=== PATIENT | female | born 1940 | race Caucasian/White ===

== ENCOUNTER 2021-02-18 09:00 | Inpatient (IN) | payer MEDICARE, BC, SELFPAY ==
[2021-02-18] VITALS (11 sets, daily range): BP systolic 115–165; BP diastolic 74–95; PULSE 57–72; RESP 16–20; TEMP 35.9–36.6; O2SAT 95–100; BMI 25.9
--- NOTE | ~2021-02-18 | CT_ITS ---
EXAMINATION: CT brain wo con INDICATION: Transient alteration of awareness COMPARISON: 05/11/2019 TECHNIQUE: Standard unenhanced head CT. The dose-length product (DLP) was 908.00 mGy-cm. The mA was a djusted according to patient size. Iterative reconstruction technique was employed. FINDINGS: Motion artifact limits the examination. There is no acute intraparenchymal hemorrhage. No e vidence of mass lesion. No evidence of acute infarction. There is mild periventricular and subcortica l hypodensity probably related to small vessel ischemic disease. There is mild prominence of the sulc i and ventricles related to cerebral atrophy. Intracranial calcified cerebral atherosclerosis is note d. There are no extra-axial collections. There is no mass effect or midline shift. The orbits and sof t tissues are unremarkable. The visualized sinuses and mastoid air cells are well aerated. IMPRESSION: 1. No acute intracranial abnormality. 2. Age related findings. Reviewed, dictated and finalized at location A.
--- NOTE | ~2021-02-18 | XR_ITS ---
EXAMINATION: XR chest 1V portable INDICATION: Altered mental status TECHNIQUE: Portable AP chest at 1027 hours COMPARISON: 05/11/2019 FINDINGS: The lung volumes are low. There is mild atelectasis of the left lung base. No pleural effus ion or pneumothorax is identified. The cardiomediastinal silhouette is normal. IMPRESSION: 1. No acute cardiopulmonary abnormality. Reviewed, dictated and finalized at location A.
--- NOTE | ~2021-02-18 | MR_ITS ---
EXAMINATION: MR brain/brain stem wo/w con DATE: 02/19/2021 16:35 INDICATION: Seizure. TECHNIQUE: Magnetic resonance imaging (MRI) of the brain and brainstem was performed without and with 14 mL MultiHance intravenous contrast. Sequences included sagittal and axial T1-weighted FSE, axial diffusion-weighted FS EPI, axial T2*-weighted GRE, axial T2-weighted FLAIR Propeller, and axial T2-we ighted Propeller. Postcontrast sequences included axial and coronal T1-weighted FSE. Apparent diffusi on coefficient (ADC) maps were created. COMPARISON: Head CT 02/18/2021 FINDINGS: There are scattered areas of nonspecific increased T2-weighted signal intensity in the cere bral white matter. There is no intracranial hemorrhage, acute infarction, or abnormal intracranial ma ss lesion. The ventricles are normal in size. The orbits are normal. The paranasal sinuses are clear. The mastoid air cells are normal. IMPRESSION: 1. Moderate nonspecific cerebral white matter disease, which likely represents chronic small vessel i schemic disease. Reviewed, dictated and finalized at location A. IMPRESSION: 1. Moderate nonspecific cerebral white matter disease, which likely represents chronic small vessel ischemic disease.
--- NOTE | ~2021-02-18 | CT_ITS ---
EXAMINATION: CT cervical spine wo con DATE: 02/18/2021 10:23 INDICATION: Head injury TECHNIQUE: Computed tomography (CT) of the cervical spine was performed without intravenous contrast. The dose-length product (DLP) was 188.46 mGy-cm. Automated exposure control and iterative reconstruc tion technique were employed. COMPARISON: None FINDINGS: There are 2 mm of retrolisthesis of C2 on C3 and 2 mm of anterolisthesis of C5 on C6. There is severe loss of intervertebral disc space height throughout the cervical spine. The vertebral body heights are maintained. The odontoid is intact. There is no fracture. Small degenerative osteophytes project from the anterior endplates of multiple vertebral bodies. 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 IMPRESSION: 1. Severe cervical spondylosis without acute findings. Reviewed, dictated and finalized at location A.
--- NOTE | 2021-02-18 09:09 | ECG_ITS ---
Measurements Intervals [place] Rate: 65 P: 53 WY: 129 QRS: 38 QRSD: 81 T: 44 QT: 425 QTc: 442 Interpretive Statements SINUS RHYTHM POSSIBLE LEFT ATRIAL ENLARGEMENT INCOMPLETE RIGHT BUNDLE BRANCH BLOCK BASELINE ARTIFACT- I, II, III, AVR, AVL, AVF, V1 BORDERLINE ECG Electronically Signed On 02-18-2021 11:07:24 CDT by Canelo Osuna D.O.
--- NOTE | 2021-02-18 10:18 | ED.GENADULT ---
HPI - General Adult General Chief complaint: Altered Mental Status Stated complaint: AMS Time Seen by Provider: 02/18/21 09:20 Source: family and EMS History of Present Illness HPI narrative: Patient is a 80 y/o female sent from residential for altered mental status. She reportedly had a fall yesterday and has some bruise on right forehead. She was found on the floor yesterday and the fall was not witnessed. She appeared fine and was able to get up. This morning, she had an episode of shaking and vomiting while she was at breakfast. She was thus sent here for evaluation. She has dementia and unable to provide any history. Related Data Home Medications Medication Instructions Recorded Confirmed mecobalamin (vitamin B12) 1,000 1,000 mcg SUBLINGUAL DAILY 05/26/19 02/18/21 mcg disintegrating tablet,sublingual acetaminophen 500 mg PO TID PRN 02/18/21 02/18/21 citalopram 5 mg DAILY 02/18/21 02/18/21 fludrocortisone 0.1 mg PO DAILY 02/18/21 02/18/21 Allergies Allergy/AdvReac Type Severity Reaction Status Date / Time No Known Allergies Allergy Unknown Unverified 05/11/19 17:15 Review of Systems Review of Systems: ROS unobtainable: Yes unobtainable due to mental status PMFSH Past Medical History Medical History (Updated 02/18/21 @ 15:24 by Nayeli Hanks MD) B12 deficiency Chronic kidney disease, stage 3 Diastolic dysfunction noted on echocardiogram 12/2016: Grade 1 diastolic dysfunction increased left heart filling pressures, EF 65% mild pulmonary valve regurgitation Fall Hypokalemia Hypomagnesemia Hypothyroidism Impaired glucose tolerance Iron deficiency Macular degeneration Obstructive lung disease mild on PFTs 05/2006 Paroxysmal atrial flutter (~04/2019) Squamous cell cancer of tongue (~2008) Surgical History Surgical History (Updated 02/18/21 @ 12:46 by Kasey Vallejo DO) History of colonoscopy with polypectomy (~2008) History of cystoscopy with bladder polypectomy History of dilation and curettage (~03/2019) Family History Family History Father Oral cancer Sibling Colorectal cancer sister Social History Social History (Updated 02/18/21 @ 12:48 by Kasey Vallejo DO) Social History: She lives at [facility]. She is a lifelong nonsmoker. She used to drink alcohol on occasion and only in moderation but has not drank alcohol in many years. 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 She has never been and does not have any children. Surrogate decision maker: Jo (niece) Code status: Full code (The patient's niece is uncertain if she would want the patient to be intubated or have CPR but wants to give further thought prior to changing the patient's code status.) Smoking status: Never smoker Alcohol intake: never Substance use: never Substance use type: does not use Gender identity (if verbalized by the patient): Female Sexual Orientation (if Verbalized by the Patient): Straight or Heterosexual Spiritual care concerns: Yes (Oriental Orthodox) Exam Const: General: no acute distress and well developed Orientation/consciousness: confusion HENMT: Head: normocephalic and hematoma (bruise right forehead) Ears: external ears normal General nose exam: Normal external nose present Eyes: General: appearance normal, both eyes and all related structures Conjunctivae: conjunctivae normal Neck: Neck: normal visual inspection and full ROM Chest: Chest palpation & inspection: normal inspection of the chest and no tenderness Resp: Effort & Inspection: normal respiratory effort Auscultation: clear to auscultation bilaterally Cardio: Rate: regular rate Rhythm: regular rhythm GI: GI Palp: No abdominal tenderness and Yes Soft to palpation Skin: General skin exam: normal color and turgor normal Neuro: General: confusion Extrem: General: normal to inspection, full ROM
[2021-02-18 10:25] LABS: Basophils Percent Auto 0.3 % (0.2-1.2); Eosinophils Percent Auto 0.1 % (0-4.4); Hematocrit 48.1 % (37.0-47.0); Hemoglobin 15.4 g/dL (12.0-15.0); Immature Granulocyte Absolute 0.02 K/mm3 (0.00-0.031); Immature Granulocyte Percent A 0.3 % (0-0.5); Immature Platelet Fraction Pct 17.1 % (0.9-11.2); Lymphocytes Absolute Auto 0.86 K/mm3 (0.9-3.2); Lymphocytes Percent Auto 12.5 % (18.3-44.2); Mean Corpuscular Hemoglobin 31.2 pg (26-34); Mean Corpuscular Volume 97.6 fl (80-100); Mean Platelet Volume 12.8 fl (7.4-10.4); Monocytes Absolute Auto 0.3 K/mm3 (0.1-0.6); Monocytes Percent Auto 4.8 % (2.6-8.5); Neutrophils Absolute Auto 5.6 K/mm3 (1.3-6.7); Platelet Count Result 143 k/mm3 (150-375); Red Blood Count 4.93 M/mm3 (4.2-5.4); Red Cell Distribution Width 14.2 % (11.5-14.5); White Blood Count 6.9 K/mm3 (4.5-10.0)
[2021-02-18 10:31] LABS: Alanine Aminotransferase 21 U/L (4-35); Albumin Level 4.1 g/dL (3.5-5.1); Alkaline Phosphatase 69 U/L (38-126); Anion Gap 9 mmol/L (8-16); Aspartate Amino Transferase 27 U/L (14-36); Bilirubin,Total 0.8 mg/dL (0.2-1.3); Blood Urea Nitrogen 15 mg/dL (7-17); Calcium 9.2 mg/dL (8.4-10.2); Carbon Dioxide 28 mmol/L (22-30); Chloride 104 mmol/L (98-107); Estimated Glomerular Filt Rate 53; Glucose 158 mg/dL (65-110); Sodium 141 mmol/L (137-145)
[2021-02-18 11:25] LABS: Add Urine Microscopic? YES; Appearance Urine Cloudy (Clear); Bilirubin Urine Negative (Negative); Blood Urine 3+ (Negative); Color Urine Yellow (Yellow); Glucose Urine UA Negative (Negative); Ketones Urine Trace mg/dL (Negative); Leukocyte Esterase Ur Negative LEU/UL (Negative); Mucus Urine Moderate /lpf; Nitrate Urine Negative (Negative); Protein Urine 1+ mg/dL (Negative); RBC Urine >75 /hpf (0-2); Specific Grav Ur 1.027 (1.001-1.035); Squamous Epithelial Cell Urine Moderate /hpf (Few)
--- NOTE | 2021-02-18 12:35 | PM.IMHP ---
H&P: HPI History of Present Illness Date/Time: 02/18/21 12:35 Chief Complaint: Sent from care home for possible seizure Narrative: 80-year-old female with past medical history of dementia, orthostatic hypotension and B12 deficiency who presented to the ER from [facility] due to possible seizure-like activity. Around noon the patient began having generalized shaking and her lips reportedly turned blue. She had had a fall the day prior that was unwitnessed with no acute complaints afterwards. She had a CT of the brain and cervical spine in the ER that was unremarkable.The patient's niece is at bedside and reports that the care home called her and told her that the patient was sitting at the table eating rate to eat breakfast. The patient suddenly became ashen and had some discoloration around her mouth. She slumped over sideways for a few seconds. The patient then had an episode of coughing followed by emesis. After which time the patient woke up and was back to her baseline. The patient was incontinent of urine at the time of the episode. The patient does not usually have difficulty with bowel or bladder control per the niece's report. The knees reports that the patient has been progressively more fatigued over the last several months. She reports the patient routinely falls asleep when in the middle of conversations. The patient will follow simple commands at the time of my evaluation. She is moving all extremities equally. She does have a bruise to her right knee but this does not seem to be all that tender. The patient does moan and groan when staff is providing any cares. She is alert oriented to person and seems to be aware that she is in the hospital. Review of Systems Review of Systems: ROS unobtainable: Yes unobtainable due to mental status [facility] Past Medical History Medical History (Updated 02/18/21 @ 15:24 by Nayeli Hanks MD) B12 deficiency Chronic kidney disease, stage 3 Diastolic dysfunction noted on echocardiogram 12/2016: Grade 1 diastolic dysfunction increased left heart filling pressures, EF 65% mild pulmonary valve regurgitation Fall Hypokalemia Hypomagnesemia Hypothyroidism Impaired glucose tolerance Iron deficiency Macular degeneration Obstructive lung disease mild on PFTs 05/2006 Paroxysmal atrial flutter (~04/2019) Squamous cell cancer of tongue (~2008) Surgical History Surgical History (Updated 02/18/21 @ 12:46 by Kasey Vallejo DO) History of colonoscopy with polypectomy (~2008) History of cystoscopy with bladder polypectomy History of dilation and curettage (~03/2019) Family History Family History Father Oral cancer Sibling Colorectal cancer sister Social History Social History (Updated 02/18/21 @ 15:27 by Kasey Vallejo DO) Social History: She lives at [facility]. She is a lifelong nonsmoker. She used to drink alcohol on occasion and only in moderation but has not drank alcohol in many years. 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 She has never been and does not have any children. Surrogate decision maker: Jo (niece) Code status: Full code (The patient's niece is uncertain if she would want the patient to be intubated or have CPR but wants to give further thought prior to changing the patient's code status.) Smoking status: Never smoker Alcohol intake: never Substance use: never Substance use type: does not use Gender identity (if verbalized by the patient): Female Sexual Orientation (if Verbalized by the Patient): Straight or Heterosexual Spiritual care concerns: Yes (Confucianism) Meds Home Medications and Allergies Home Medications Medication Instructions Recorded Confirmed Type mecobalamin (vitamin B12) 1,000 1,000 mcg SUBLINGUAL DAILY 05/26/19 02/18/21 History mcg disintegrating tablet,sublingual don
[2021-02-18] MEDS: levETIRAcetam 500MG/NACL 100ML 500 MG/100 ML BAG 400 MG IVPB ×2 (12:44→22:00)
[2021-02-18] MEDS: SODIUM CHLORIDE 0.9% IV 1,000 ML 999 ML IV CONT (13:00)
[2021-02-18 13:35] LABS: Lactic Acid Reflex 2.3 mmol/L (0.7-2.1)
[2021-02-18] MEDS: SODIUM CHLORIDE 0.9% IV 1,000 ML 100 ML IV CONT (14:28)
--- NOTE | 2021-02-18 14:36 | ADMGEN ---
This patient, Rakel Jeronimo, was admitted to Medical Room 341-01. Patient/family oriented to hospital policies and general routines including ID bracelet, bed and alarms, visiting hours, pain management, procedures, bathroom and other care routines, personal items, smoking policy, room service/diet, and visiting hours. Information on how to activate the Rapid Response Team has been discussed. Patient/Family are encouraged to report perceived risks to care and to ask questions if they do not understand what they are told or what they should do. Patinet in bed resting comfortably at this time with no complaints. Family at bedside.
[2021-02-18 16:15] LABS: Reflex Lactic Acid Yes or No Add Lactic
[2021-02-18] MEDS: CITALOPRAM HYDROBROMIDE 5 MG TABLET PO (19:49)
[2021-02-18] MEDS: DONEPEZIL HCL 10 MG TABLET PO (22:01)
[2021-02-19] VITALS (9 sets, daily range): BP systolic 134–149; BP diastolic 74–88; PULSE 54–71; RESP 16–18; TEMP 35.6–36.1; O2SAT 94–99
[2021-02-19] MEDS: SODIUM CHLORIDE 0.9% IV 1,000 ML 100 ML IV CONT ×3 (01:24→23:43)
[2021-02-19 06:28] LABS: Anion Gap 5 mmol/L (8-16); Blood Urea Nitrogen 13 mg/dL (7-17); Calcium 8.5 mg/dL (8.4-10.2); Carbon Dioxide 27 mmol/L (22-30); Chloride 110 mmol/L (98-107); Estimated CRCL calculation 44 ml/min; Estimated Glomerular Filt Rate > 60; Glucose 83 mg/dL (65-110); Hematocrit 43.9 % (37.0-47.0); Hemoglobin 13.9 g/dL (12.0-15.0); Mean Corpuscular HGB Conc 31.7 g/dl (32-36); Mean Platelet Volume 12.8 fl (7.4-10.4); Platelet Count Result 137 k/mm3 (150-375); Red Blood Count 4.48 M/mm3 (4.2-5.4); Red Cell Distribution Width 14.4 % (11.5-14.5); Sodium 142 mmol/L (137-145)
[2021-02-19] MEDS: levETIRAcetam 500MG/NACL 100ML 500 MG/100 ML BAG 200 MG IVPB (09:01)
[2021-02-19] MEDS: CYANOCOBALAMIN 1,000 MCG TABLET 1000 MCG PO (09:02)
[2021-02-19] MEDS: POTASSIUM CHLORIDE 20 MEQ TABLET.ER PO (09:02)
[2021-02-19] MEDS: FLUDROCORTISONE ACETATE 0.1 MG TABLET PO (09:02)
[2021-02-19] MEDS: ASPIRIN 81 MG CHEWABLE TABLET PO (09:02)
--- NOTE | 2021-02-19 10:25 | WPDNEUROLOGY ---
Neurology EEG Report General Information Date of Study: 02/19/21 TEST eeg DIAGNOSIS Seizures CONDITION OF RECORDING patient slept throughout the tracing.No history available. EEG NUMBER [id number] CLINICAL HISTORY seizures EEG DESCRIPTION whole record consists of low-voltage 15 to 18 hertz per 2nd beta and bilateral symmetrical sleep activity with symmetrical sleep spindles. Non paroxysmal ,nonfocal, nonlateralizing. IMPRESSION no significant abnormalities noted throughout the tracing during drowsiness and sleep.
--- NOTE | 2021-02-19 15:17 | PCSTNOTE ---
Please refer to the Bedside Swallow Evaluation in the EMR. Please note, silent aspiration cannot be ruled out at bedside.
[2021-02-19] MEDS: CITALOPRAM HYDROBROMIDE 5 MG TABLET PO (17:30)
--- NOTE | 2021-02-19 17:59 | PM.IMPN ---
Progress Note: A&P Assessment and Plan (1) Witnessed seizure-like activity: Code(s): R56.9 - Unspecified convulsions Status: Acute Assessment and Plan: seizure-like activity could be due to seizure with recent head trauma verses vasovagal event given patient had an episode of emesis associated with the event. The patient also had witnessed episode of coughing just prior to emesis and seizure-like activity. Given the patient's history of multiple oral surgeries due to tongue cancer will ask speech therapy to evaluate the patient's swallow function. 02/19/21 17:59 patient is 80-year-old female a resident [facility] with history of dementia, orthostatic hypotension, vitamin B12 deficient was sent to emergency depart with seizure-like activity observed at this [facility], emergency depart patient was started on Keppra, CT scan of the head is negative for any acute injury similarly MRI of the brain is negative for any acute activity, to further evaluate patient had a EEG which is essentially normal does not suggest any seizure activity, unfortunately patient is quite somnolent unable to provide detail review of symptoms, patient had speech evaluation there was no difficulty with swallowing, will have PT OT evaluate the patient and further recommendation to follow. (2) Vascular dementia: Code(s): F01.50 - Vascular dementia without behavioral disturbance Status: Acute Assessment and Plan: Continue home Aricept. Subjective Date/time seen: 02/19/21 17:59 patient is 80-year-old female a resident [facility] with history of dementia, orthostatic hypotension, vitamin B12 deficient was sent to emergency depart with seizure-like activity observed at this care center, emergency depart patient was started on Keppra, CT scan of the head is negative for any acute injury similarly MRI of the brain is negative for any acute activity, to further evaluate patient had a EEG which is essentially normal does not suggest any seizure activity, unfortunately patient is quite somnolent unable to provide detail review of symptoms, patient had speech evaluation there was no difficulty with swallowing, will have PT OT evaluate the patient and further recommendation to follow. Review of Systems Review of Systems: ROS unobtainable: Yes unobtainable due to medical condition Exam Narrative: elderly frail Patient is comfortable, NAD HEENT: eyes are clear and none icteric LUNGS: normal respiratory effort ABD: not distended Lower extremities: no edema SKIN: nonjaundiced Neuro: somnolent. Objective Data Vital Signs Vital Signs: Vital Signs - 24 hr 02/18/21 20:00 02/18/21 21:13 02/19/21 00:00 Temperature 98 F 97 F L Pulse Rate 63 59 L Respiratory Rate 16 16 Blood Pressure 115/88 134/88 Pulse Oximetry 95 95 98 02/19/21 04:00 02/19/21 06:08 02/19/21 08:00 Temperature 97 F L Pulse Rate 54 L 63 59 L Respiratory Rate 17 Blood Pressure 143/78 H Pulse Oximetry 99 02/19/21 12:00 02/19/21 15:27 02/19/21 16:43 Temperature 96.1 F L Pulse Rate 62 59 L 65 Respiratory Rate 18 Blood Pressure 144/78 H Pulse Oximetry 96 Intake/Output Intake/Output: Intake & Output 02/16/21 02/17/21 02/18/21 02/19/21 23:59 23:59 23:59 23:59 Intake Total 320 2390 Output Total 500 Balance 320 1890 Meds/Results Medications: Active Medications Generic Name Dose Route Start Last Admin Trade Name Freq PRN Reason Stop Dose Admin Acetaminophen 500 mg 02/18/21 15:29 Acetaminophen 500 Mg Tablet PO TID PRN Pain 1-3 or fever Aspirin 81 mg 02/19/21 09:00 02/19/21 09:02 Aspirin 81 Mg Chewable Tablet PO 81 mg DAILY NASRA Administration Citalopram Hydrobromide 5 mg 02/18/21 18:00 02/19/21 17:30 Citalopram Hydrobromide 5 Mg Tablet PO 5 mg QPM NASRA Administration Cyanocobalamin 1,000 mcg 02/19/21 09:00 02/19/21 09:02
[2021-02-19] MEDS: DONEPEZIL HCL 10 MG TABLET PO (20:07)
[2021-02-19] MEDS: levETIRAcetam 500MG/NACL 100ML 500 MG/100 ML BAG 400 MG IVPB (20:10)
[2021-02-20] VITALS (7 sets, daily range): BP systolic 125–151; BP diastolic 60–82; PULSE 59–87; RESP 16–18; TEMP 36.1–36.8; O2SAT 92–99
[2021-02-20 06:04] LABS: Hematocrit 40.5 % (37.0-47.0); Hemoglobin 13.1 g/dL (12.0-15.0); Immature Platelet Fraction Pct 15.6 % (0.9-11.2); Mean Corpuscular HGB Conc 32.3 g/dl (32-36); Mean Corpuscular Hemoglobin 31.3 pg (26-34); Mean Corpuscular Volume 96.7 fl (80-100); Platelet Count Result 125 k/mm3 (150-375); Red Blood Count 4.19 M/mm3 (4.2-5.4); Red Cell Distribution Width 14.3 % (11.5-14.5); White Blood Count 5.8 K/mm3 (4.5-10.0)
[2021-02-20 06:13] LABS: Anion Gap 5 mmol/L (8-16); Blood Urea Nitrogen 11 mg/dL (7-17); Calcium 8.4 mg/dL (8.4-10.2); Carbon Dioxide 23 mmol/L (22-30); Chloride 111 mmol/L (98-107); Estimated CRCL calculation 50 ml/min; Estimated Glomerular Filt Rate > 60; Glucose 84 mg/dL (65-110); Magnesium 1.6 mg/dL (1.6-2.3); Potassium 3.8 mmol/L (3.4-5.0); Sodium 139 mmol/L (137-145)
[2021-02-20] MEDS: ASPIRIN 81 MG CHEWABLE TABLET PO (08:24)
[2021-02-20] MEDS: POTASSIUM CHLORIDE 20 MEQ TABLET.ER PO (08:24)
[2021-02-20] MEDS: FLUDROCORTISONE ACETATE 0.1 MG TABLET PO (08:24)
[2021-02-20] MEDS: CYANOCOBALAMIN 1,000 MCG TABLET 1000 MCG PO (08:24)
[2021-02-20] MEDS: levETIRAcetam 500MG/NACL 100ML 500 MG/100 ML BAG 400 MG IVPB (08:27)
--- NOTE | 2021-02-20 11:00 | PM.DS ---
DS: Admitting Diagnosis Admitting Diagnosis Chief Complaint: Sent from senior care for possible seizure DS: Discharge Diagnosis Discharge Diagnosis (1) Witnessed seizure-like activity: Code(s): R56.9 - Unspecified convulsions Status: Acute Assessment and Plan: seizure-like activity could be due to seizure with recent head trauma verses vasovagal event given patient had an episode of emesis associated with the event. The patient also had witnessed episode of coughing just prior to emesis and seizure-like activity. Given the patient's history of multiple oral surgeries due to tongue cancer will ask speech therapy to evaluate the patient's swallow function. 02/19/21 17:59 patient is 80-year-old female a resident [facility] with history of dementia, orthostatic hypotension, vitamin B12 deficient was sent to emergency depart with seizure-like activity observed at [facility], emergency depart patient was started on Keppra, CT scan of the head is negative for any acute injury similarly MRI of the brain is negative for any acute activity, to further evaluate patient had a EEG which is essentially normal does not suggest any seizure activity, unfortunately patient is quite somnolent unable to provide detail review of symptoms, patient had speech evaluation there was no difficulty with swallowing, will have PT OT evaluate the patient and further recommendation to follow. (2) Vascular dementia: Code(s): F01.50 - Vascular dementia without behavioral disturbance Status: Acute Assessment and Plan: Continue home Aricept. DS: Summary Hospital Course Reason for hospitalization: Chief Complaint: Sent from senior care for possible seizure Narrative: 80-year-old female with past medical history of dementia, orthostatic hypotension and B12 deficiency who presented to the ER from [facility] due to possible seizure-like activity. Around noon the patient began having generalized shaking and her lips reportedly turned blue. She had had a fall the day prior that was unwitnessed with no acute complaints afterwards. She had a CT of the brain and cervical spine in the ER that was unremarkable.The patient's niece is at bedside and reports that the senior care called her and told her that the patient was sitting at the table eating rate to eat breakfast. The patient suddenly became ashen and had some discoloration around her mouth. She slumped over sideways for a few seconds. The patient then had an episode of coughing followed by emesis. After which time the patient woke up and was back to her baseline. The patient was incontinent of urine at the time of the episode. The patient does not usually have difficulty with bowel or bladder control per the niece's report. The knees reports that the patient has been progressively more fatigued over the last several months. She reports the patient routinely falls asleep when in the middle of conversations. The patient will follow simple commands at the time of my evaluation. She is moving all extremities equally. She does have a bruise to her right knee but this does not seem to be all that tender. The patient does moan and groan when staff is providing any cares. She is alert oriented to person and seems to be aware that she is in the hospital. Hospital Course: 02/19/21 17:59 patient is 80-year-old female a resident [facility] with history of dementia, orthostatic hypotension, vitamin B12 deficient was sent to emergency depart with seizure-like activity observed at this care center, emergency depart patient was started on Keppra, CT scan of the head is negative for any acute injury similarly MRI of the brain is negative for any acute activity, to further evaluate patient had a EEG which is essentially normal does not suggest any seizure activity, unfortunately patient is quite somnolent unable to provide detail review of symptoms,
[2021-02-20 13:40] LABS: Prolactin 8.1 ng/mL (***)
== END 2021-02-20 17:15 | DRG 101 ==
LOC: ANHED 10:14 → ANH3MED 12:47
PROVIDERS: Internal Medicine; Admitting Provider Internal Medicine; Emergency Provider Emergency Medicine; Visit Provider Family Medicine
DX: R56.9 Unspecified convulsions (principal); F01.50 Vascular dementia, unspecified severity, without behavioral disturbance, psychotic disturbance, mood disturbance, and anxiety; N18.30 Chronic kidney disease, stage 3 unspecified; I51.89 Other ill-defined heart diseases; S00.83XA Contusion of other part of head, initial encounter; W19.XXXA Unspecified fall, initial encounter; E53.8 Deficiency of other specified B group vitamins; I95.1 Orthostatic hypotension; Z85.810 Personal history of malignant neoplasm of tongue; Z79.899 Other long term (current) drug therapy
CPT/HCPCS: 36415; 51701; 70450; 70553; 71045; 72125; 80048; 80053; 81001; 83605; 83735; 84146; 85025; 85027; 85055; 87086; 92610; 93005; 95816; 96361; 96365; 96376; 97161; 97165; 99285; A9270; A9577; G0378; J1953; J7030

== ENCOUNTER 2021-06-16 08:26 | Emergency (ER) | payer MEDICARE, BC, SELFPAY ==
--- NOTE | ~2021-06-16 | XR_ITS ---
EXAMINATION: XR wrist LT min 3V DATE: 06/16/2021 08:48 INDICATION: Left wrist pain after fall, initial encounter TECHNIQUE: Posteroanterior, ulnar deviation, oblique, and lateral views of the left wrist were obtain ed. COMPARISON: None available FINDINGS: There is an acute, traumatic, closed, nondisplaced fracture of the distal radius. One fract ure plane appears to extend to the distal articular surface of the radius. Soft tissue swelling surro unds the fracture. No definite additional acute osseous abnormality is identified, sensitivity limite d by osteopenia. There is mild osteoarthritis at the first carpometacarpal joint. IMPRESSION: 1. Acute nondisplaced fracture of the distal radius. Reviewed, dictated and finalized at location A. A RELATIONS COORDINATOR
[2021-06-16 08:33] VITALS: BP 164/78; PULSE 68; RESP 18; TEMP 36.3; O2SAT 98
--- NOTE | 2021-06-16 09:02 | ED.FALL ---
HPI - Fall General Chief Complaint: Fall Stated Complaint: FALL/ L WRIST PAIN Time Seen by Provider: 06/16/21 08:46 Source: patient, EMS and RN notes reviewed Mode of arrival: EMS Limitations: altered mental status History of Present Illness HPI Narrative: Patient had a witnessed fall this morning, no head or neck injury, complaining of left wrist pain only when you touch it otherwise patient is asymptomatic Related Data Home Medications Medication Instructions Recorded Confirmed mecobalamin (vitamin B12) 1,000 1,000 mcg SUBLINGUAL DAILY 05/26/19 02/18/21 mcg disintegrating tablet,sublingual acetaminophen 500 mg PO TID PRN 02/18/21 02/18/21 citalopram 5 mg DAILY 02/18/21 02/18/21 fludrocortisone 0.1 mg PO DAILY 02/18/21 02/18/21 Allergies Allergy/AdvReac Type Severity Reaction Status Date / Time No Known Allergies Allergy Unknown Verified 06/16/21 08:36 Review of Systems Review of Systems: ROS unobtainable: Yes unobtainable due to mental status PMFSH Past Medical History Medical History B12 deficiency Chronic kidney disease, stage 3 Diastolic dysfunction noted on echocardiogram 12/2016: Grade 1 diastolic dysfunction increased left heart filling pressures, EF 65% mild pulmonary valve regurgitation Fall Hypokalemia Hypomagnesemia Hypothyroidism Impaired glucose tolerance Iron deficiency Macular degeneration Obstructive lung disease mild on PFTs 05/2006 Paroxysmal atrial flutter (~04/2019) Squamous cell cancer of tongue (~2008) Surgical History Surgical History History of colonoscopy with polypectomy (~2008) History of cystoscopy with bladder polypectomy History of dilation and curettage (~03/2019) Family History Family History Father Oral cancer Sibling Colorectal cancer sister Social History Social History Social History: She lives at [facility]. She is a lifelong nonsmoker. She used to drink alcohol on occasion and only in moderation but has not drank alcohol in many years. 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 She has never been and does not have any children. Surrogate decision maker: Jo (niece) Code status: Full code (The patient's niece is uncertain if she would want the patient to be intubated or have CPR but wants to give further thought prior to changing the patient's code status.) Smoking status: Never smoker Alcohol intake: never Substance use: never Substance use type: does not use Gender identity (if verbalized by the patient): Female Sexual Orientation (if Verbalized by the Patient): Straight or Heterosexual Spiritual care concerns: Yes (Mosque) Exam Narrative: General appearance: Well-developed, well-nourished Skin: Normal color Head: Normocephalic, nontraumatic Eyes: Clear conjunctiva ENT: Oropharynx normal, ears normal, nose normal Neck: Supple, nontender Chest and respiratory: Airway patent, no respiratory distress, no accessory muscle use Heart: Regular rate/rhythm Abdomen: Soft, nontender, no organomegaly, quiet bowel sounds Vascular: Normal peripheral pulses, normal capillary refill. Musculoskeletal: Slight diffuse tenderness left wrist, no bruises, no deformity, slight limited range of motion Neurologic: Alert and oriented to her name only Course Course Emergency Course: Stable Vital Signs Vital signs: Vital Signs Temperature 36.3 C L 06/16/21 08:33 Pulse Rate 68 06/16/21 08:33 Respirat
--- NOTE | 2021-06-16 10:18 | PC.NURSE ---
[facility] accepted return to [facility] 10:45 trip # [id number]
--- NOTE | 2021-06-16 10:37 | PC.NURSE ---
Steven Gonzalez Called to give nurse to nurse report, Barb received report without any questions or concerns.
--- NOTE | 2021-06-16 11:45 | PC.NURSE ---
[facility] cancelled per rn daughter willing to take pt back to [place]
[2021-06-16 12:02] VITALS: BP 158/80; PULSE 70; RESP 18; O2SAT 100
== END 2021-06-16 12:09 ==
LOC: ANHED 09:36
PROVIDERS: Emergency Provider Emergency Medicine
DX: S52.592A Other fractures of lower end of left radius, initial encounter for closed fracture (principal); E53.8 Deficiency of other specified B group vitamins; N18.30 Chronic kidney disease, stage 3 unspecified; I50.30 Unspecified diastolic (congestive) heart failure; E03.9 Hypothyroidism, unspecified; H35.30 Unspecified macular degeneration; J44.9 Chronic obstructive pulmonary disease, unspecified; I48.92 Unspecified atrial flutter; Z85.810 Personal history of malignant neoplasm of tongue; W19.XXXA Unspecified fall, initial encounter
CPT/HCPCS: 29125; 73110; 99284

== ENCOUNTER 2021-06-30 09:25 | Inpatient (IN) | payer MEDICARE, BC, SELFPAY ==
[2021-06-30] VITALS (29 sets, daily range): BP systolic 124–153; BP diastolic 60–90; PULSE 70–98; RESP 17–24; TEMP 36.2–36.4; O2SAT 90–100; BMI 21.6
--- NOTE | ~2021-06-30 | XR_ITS ---
EXAMINATION: XR hip BI 2V w AP pelvis DATE: 06/30/2021 10:54 INDICATION: Pelvic bruising TECHNIQUE: AP view the pelvis and two views of each hip were obtained. COMPARISON: 05/10/2008 FINDINGS: Bone alignment is normal. There is no fracture. There is mild osteoarthritis of the hips. P hleboliths are noted in the pelvis. There is severe lower lumbar spondylosis. IMPRESSION: 1. No acute osseous abnormality. Reviewed, dictated and finalized at location A. CRINOLOGY SPECIALIST
--- NOTE | ~2021-06-30 | CT_ITS ---
EXAMINATION: CT brain wo con INDICATION: Confusion COMPARISON: 02/18/2021 TECHNIQUE: Standard unenhanced head CT. The dose-length product (DLP) was 605.33 mGy-cm. The mA was a djusted according to patient size. Iterative reconstruction technique was employed. FINDINGS: There is no acute intraparenchymal hemorrhage. No evidence of mass lesion. No evidence of a cute infarction. There is mild periventricular and subcortical hypodensity probably related to small vessel ischemic disease. There is mild prominence of the sulci and ventricles related to cerebral atr ophy. Intracranial calcified cerebral atherosclerosis is noted. There are no extra-axial collections. There is no mass effect or midline shift. The orbits and soft tissues are unremarkable. The visualiz ed sinuses and mastoid air cells are well aerated. IMPRESSION: 1. No acute intracranial abnormality. 2. Age related findings. Reviewed, dictated and finalized at location A. RAFT MECHANIC ARMAMENT
--- NOTE | ~2021-06-30 | XR_ITS ---
EXAMINATION: XR knee LT 3V DATE: 06/30/2021 10:54 INDICATION: Left knee pain TECHNIQUE: Three views of the left knee were obtained. COMPARISON: 03/26/2013 FINDINGS: Alignment is normal. No fracture or osteochondral lesion. There is tricompartmental osteoar thritis of the knee, moderate in the medial and patellofemoral compartments. Chondrocalcinosis is not ed. There is no joint effusion. There is mild medial soft tissue swelling of the knee. IMPRESSION: 1. Osteoarthritis without acute osseous abnormality. Reviewed, dictated and finalized at location A. STANT MAINTENANCE MANAGER
--- NOTE | ~2021-06-30 | US_ITS ---
EXAMINATION: US biopsy lymph node DATE: 07/04/2021 12:21 INDICATION: Left internal jugular chain lymphadenopathy. TECHNIQUE: The procedure including the risks, benefits, and alternatives was discussed with Jo de león. Risks discussed included bleeding and infection. She understood the risks and agreed to meme mccall. The skin overlying the left neck was prepped and draped in usual sterile fashion. Anesthetic was administered with 1% lidocaine subcutaneously. An 18 gauge core biopsy needle was then used to obtai n 3 core biopsy specimens under continuous sonographic guidance. The entry site was cleaned and dress ed. There were no immediate complications. FINDINGS: Ultrasound images demonstrate the needle in an enlarged left internal jugular lymph node. IMPRESSION: 1. Ultrasound-guided core needle biopsy a left internal jugular lymph node. Reviewed, dictated and finalized at location A. CTOR PHARMACEUTICAL
--- NOTE | ~2021-06-30 | XR_ITS ---
EXAMINATION: XR chest 1V portable INDICATION: Leukocytosis TECHNIQUE: Portable AP chest at 1332 hours COMPARISON: 02/18/2021 FINDINGS: The lungs are free of acute opacities. There is no pleural effusion or pneumothorax. The pa tient is rotated. The cardiomediastinal silhouette is normal. IMPRESSION: 1. No acute cardiopulmonary abnormality. Reviewed, dictated and finalized at location A. L SHARPENER
--- NOTE | ~2021-06-30 | CT_ITS ---
EXAMINATION: CT soft tissue neck wo con DATE: 07/01/2021 17:39 INDICATION: Tongue cancer. TECHNIQUE: Computed tomography (CT) of the neck was performed with 75 mL Omnipaque-350 intravenous co ntrast. Automated exposure control and iterative reconstruction technique were employed. The dose-abe gth product was 469.33 mGy-cm. COMPARISON: Cervical spine CT 02/18/2021 FINDINGS: There is mild scarring at the lung apices. There is mild emphysema. There are airspace opac ities in right lower lobe, consistent with pneumonia. Dependent airspace opacities in the other lobes are likely atelectasis. Calcified left hilar lymph nodes are consistent with old granulomatous disea se. The orbits are normal. There is a 1.8 x 1.0 cm left mid internal jugular chain lymph node with fo klaudia peripheral calcifications. There is mucosal thickening in the paranasal sinuses. There is severe cervical spondylosis. IMPRESSION: 1. Mildly enlarged left mid internal jugular chain lymph node, worsened from 02/18/2021, consistent wit h metastatic disease. 2. Airspace opacities in right lung lower lobe, consistent with pneumonia. Reviewed, dictated and finalized at location A. HEAD LINER INSTALLER IMPRESSION: 1. Mildly enlarged left mid internal jugular chain lymph node, worsened from 02/18/2021, consistent with metastatic disease. 2. Airspace opacities in right lung lower lobe, consistent with pneumonia.
--- NOTE | ~2021-06-30 | US_ITS ---
US abdomen limited INDICATION: Abnormal CT. PROCEDURE: Realtime right upper abdominal ultrasound. COMPARISON: No prior studies for comparison. FINDINGS: The pancreas is normal without focal mass or pancreatic ductal dilation. Liver echotexture is normal without focal mass or intrahepatic biliary dilatation. There is normal directional flow i n the portal vein. There are gallstones with gallbladder wall thickening measuring 8 mm. Common bile duct measures 5 mm . No sonographic Gotti's sign. IMPRESSION: 1: Cholelithiasis with gallbladder wall thickening. Findings suspicious for cholecystitis. Clinically correlate. Reviewed, dictated and finalized at location A. VISION TECHNICIAN IMPRESSION: 1: Cholelithiasis with gallbladder wall thickening. Findings suspicious for cho lecystitis. Clinically correlate.
--- NOTE | ~2021-06-30 | XR_ITS ---
EXAMINATION: XR knee RT 3V DATE: 06/30/2021 10:54 INDICATION: Right knee pain TECHNIQUE: Three views of the right knee were obtained. COMPARISON: 11/06/2009 FINDINGS: Alignment is normal. No fracture or osteochondral lesion. There is chondrocalcinosis of the menisci. No joint effusion/synovitis. Mild lateral soft tissue swelling is present. IMPRESSION: 1. Mild osteoarthritis without acute osseous abnormality. Reviewed, dictated and finalized at location A. CLERK
--- NOTE | ~2021-06-30 | CT_ITS ---
EXAMINATION: CT abdomen pelvis w con DATE: 07/01/2021 17:39 INDICATION: Abdomen pain. Leukocytosis. TECHNIQUE: Computed tomography (CT) of the abdomen and pelvis was performed with 100 cc Omnipaque 350 intravenous contrast. The dose-length product was 881.16 mGy-cm. Automated exposure control and iter ative reconstruction technique were employed. COMPARISON: CT dated 11/05/2018. FINDINGS: Colonic diverticulosis without evidence for diverticulitis. There is right upper and lower lobe airspace disease which may represent atelectasis or pneumonia. Small pericardial effusion. No si gnificant pleural effusion. There is atherosclerosis of the aorta without evidence for aneurysm. Elevated right diaphragm. There is mild gallbladder wall thickening. The liver, spleen, pancreas, adrenal glands and kidneys are unre markable. There is colonic diverticulosis without evidence for diverticulitis. Nonobstructive bowel g as pattern. No free air or free fluid. There is an L1 superior endplate compression fracture which is age-indeterminate. Mild thoracic spondylosis the appendix is unremarkable. No evidence for appendici tis. IMPRESSION: 1. Patchy right-sided airspace disease which may represent atelectasis or pneumonia. 2: Small pericardial effusion. 3: Gallbladder wall thickening. No definite gallstones identified. Consider correlation with ultrasou nd if there is concern for cholecystitis. 4: Age-indeterminate L1 superior endplate compression fracture. Reviewed, dictated and finalized at location A. RNITY FLOOR SUPERVISOR IMPRESSION: 1. Patchy right-sided airspace disease which may represent atelectasis or pneum onia. 2: Small pericardial effusion. 3: Gallbladder wall thickening. No definite gallstones identified. Consider cor relation with ultrasound if there is concern for cholecystitis. 4: Age-indeterminate L1 superior endplate compression fracture.
--- NOTE | 2021-06-30 10:20 | ECG_ITS ---
Measurements Intervals [place] Rate: 76 P: 63 NE: 129 QRS: 34 QRSD: 90 T: -35 QT: 387 QTc: 436 Interpretive Statements SINUS RHYTHM INCOMPLETE RIGHT BUNDLE BRANCH BLOCK BORDERLINE ST-T WAVE ABNORMALITY- ANTEROLAT/INF LEADS BASELINE ARTIFACT- I, II, III, AVR, AVL, AVF, V1-V6 BORDERLINE ECG Electronically Signed On 06-30-2021 12:21:38 MILLINERY DESIGNER by Canelo Osuna D.O.
--- NOTE | 2021-06-30 10:22 | ED.GENADULT ---
HPI - General Adult General Chief complaint: Unspecified Stated complaint: refusing to eat or take medications Time Seen by Provider: 06/30/21 10:12 Source: EMS and RN notes reviewed Mode of arrival: EMS Limitations: altered mental status History of Present Illness HPI narrative: Patient brought in by EMS from [facility] with reports that she has not been taking her medications for the last three days. Her baseline status is oriented x 1-2. Patient has an underlying history of dementia, atrial flutter, seizures, CKD, squamous cell carcinoma of the tongue, diastolic dysfunction. On my initial exam, pt is oriented to person but confused about place and time. She does not answer any additional interview questions. She was seen here at the end of May. At that time she was evaluated for a fall. She had an acute fracture of the distal left radius. She did have a follow up appt thereafter. On my exam she has bruising to the left lateral pelvis and anterior aspect of both knees. Related Data Home Medications Medication Instructions Recorded Confirmed mecobalamin (vitamin B12) 1,000 1,000 mcg SUBLINGUAL DAILY 05/26/19 02/18/21 mcg disintegrating tablet,sublingual acetaminophen 500 mg PO TID PRN 02/18/21 02/18/21 citalopram 5 mg DAILY 02/18/21 02/18/21 fludrocortisone 0.1 mg PO DAILY 02/18/21 02/18/21 Allergies Allergy/AdvReac Type Severity Reaction Status Date / Time No Known Allergies Allergy Unknown Verified 06/19/21 10:14 Review of Systems Review of Systems: ROS unobtainable: Yes unobtainable due to mental status PMFSH Past Medical History Medical History B12 deficiency Chronic kidney disease, stage 3 Diastolic dysfunction noted on echocardiogram 12/2016: Grade 1 diastolic dysfunction increased left heart filling pressures, EF 65% mild pulmonary valve regurgitation Fall Hypokalemia Hypomagnesemia Hypothyroidism Impaired glucose tolerance Iron deficiency Macular degeneration Obstructive lung disease mild on PFTs 05/2006 Paroxysmal atrial flutter (~04/2019) Squamous cell cancer of tongue (~2008) Surgical History Surgical History History of colonoscopy with polypectomy (~2008) History of cystoscopy with bladder polypectomy History of dilation and curettage (~03/2019) Family History Family History Father Oral cancer Sibling Colorectal cancer sister Social History Social History Social History: She lives at [facility]. She is a lifelong nonsmoker. She used to drink alcohol on occasion and only in moderation but has not drank alcohol in many years. 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 She has never been and does not have any children. Surrogate decision maker: Jo (niece) Code status: Full code (The patient's niece is uncertain if she would want the patient to be intubated or have CPR but wants to give further thought prior to changing the patient's code status.) Smoking status: Never smoker Alcohol intake: never Substance use: never Substance use type: does not use Gender identity (if verbalized by the patient): Female Sexual Orientation (if Verbalized by the Patient): Straight or Heterosexual Spiritual care concerns: Yes (Adventism) Exam Narrative: GENERAL: Well-appearing, well-nourished, and in no acute distress. Generalized pallor HEAD: Normocephalic, atraumatic. EYES: PERRLA and EOMI. Mucous consistent white discharge noted to left eye ENT: Nares clear, no rhinorrhea or epistaxis. Mucous membranes moist. Oropharynx without tonsillar hypertrophy exudate or other lesions. Bilateral TMs pearly almanzar nonbulging NECK: Supple. No adenopathy or masses.
[2021-06-30 11:17] LABS: Basophils Absolute Auto 0.1 K/mm3 (0.0-0.1); Basophils Percent Auto 0.4 % (0.2-1.2); Eosinophils Absolute Auto 0.5 K/mm3 (0-0.3); Eosinophils Percent Auto 4.2 % (0-4.4); Hematocrit 46.9 % (37.0-47.0); Hemoglobin 15.8 g/dL (12.0-15.0); Immature Granulocyte Absolute 0.07 K/mm3 (0.00-0.031); Immature Granulocyte Percent A 0.6 % (0-0.5); Lymphocytes Absolute Auto 0.72 K/mm3 (0.9-3.2); Lymphocytes Percent Auto 5.7 % (18.3-44.2); Mean Corpuscular HGB Conc 33.7 g/dl (32-36); Mean Corpuscular Hemoglobin 32.8 pg (26-34); Mean Corpuscular Volume 97.5 fl (80-100); Monocytes Absolute Auto 1.1 K/mm3 (0.1-0.6); Monocytes Percent Auto 8.4 % (2.6-8.5); Neutrophils Absolute Auto 10.2 K/mm3 (1.3-6.7); Neutrophils Percent Auto 80.7 % (45.5-73.1); Platelet Count Result 143 k/mm3 (150-375); Red Blood Count 4.81 M/mm3 (4.2-5.4); Red Cell Distribution Width 13.6 % (11.5-14.5); White Blood Count 12.6 K/mm3 (4.5-10.0)
[2021-06-30 11:33] LABS: Alanine Aminotransferase 13 U/L (4-35); Albumin Level 4.3 g/dL (3.5-5.1); Alkaline Phosphatase 77 U/L (38-126); Anion Gap 12 mmol/L (8-16); Aspartate Amino Transferase 25 U/L (14-36); Bilirubin,Total 2.5 mg/dL (0.2-1.3); Blood Urea Nitrogen 13 mg/dL (7-17); Calcium 9.3 mg/dL (8.4-10.2); Carbon Dioxide 28 mmol/L (22-30); Chloride 100 mmol/L (98-107); Estimated Glomerular Filt Rate 47; Glucose 136 mg/dL (65-110); Potassium 3.1 mmol/L (3.4-5.0); Sodium 140 mmol/L (137-145)
[2021-06-30 11:45] LABS: Troponin I 0.013 ng/mL (0.000-0.034)
[2021-06-30 12:24] LABS: Magnesium 1.6 mg/dL (1.6-2.3)
[2021-06-30 12:42] LABS: Add Urine Microscopic? YES; Appearance Urine Cloudy (Clear); Bilirubin Urine 1+ (Negative); Blood Urine 1+ (Negative); Color Urine Amber (Yellow); Glucose Urine UA 1+ mg/dL (Negative); Ketones Urine 1+ mg/dL (Negative); Leukocyte Esterase Ur Negative LEU/UL (Negative); Mucus Urine Heavy /lpf; Nitrate Urine Negative (Negative); Protein Urine 2+ mg/dL (Negative); Squamous Epithelial Cell Urine Many /hpf (Few); WBC Urine 21-30 /hpf
[2021-06-30] MEDS: POTASSIUM CHLORIDE 20 MEQ PACKET (FOR LIQUID) 40 MEQ PO (13:23)
--- NOTE | 2021-06-30 15:12 | PM.IMHP ---
H&P: HPI History of Present Illness Date/Time: 06/30/21 15:12 Chief Complaint: Generalized weakness/Failure to thrive Narrative: 80-year-old female with past medical history of paroxysmal Aflutter, hypothyroidism, dementia (baseline orientation x 1-2), orthostatic hypotension, B12 deficiency, diastolic dysfunction, who presented to the ER from [facility] due to failure to thrive. Per EMS report the patient had not been taking her medications the last 3 days, increased generalized weakness, refusing to eat or drink and per her niece she is at her baseline mental status and acting her normal self. The patient has been having increased drainage to her left eye and has been using warm wash cloths to help with the matting. Niece says she does not have good vision and believes she does not eat and drink much because she states everything looks dirty from her cataracts. She is suppose to have an eye appointment Thursday for her cataracts. Niece is also concerned she has reoccurance of her tongue cancer causing her to not eat and drink much. Initial vitals showed stable vitals with blood pressure 134/76, heart rate 98 beats per minute, afebrile, 97% on room air. Initial labs showed leukocytosis at 12,600, with elevated neutrophils at 80%, hemoconcentration with a hemoglobin of 15.8, hematocrit 46.9. Thrombocytopenia at 143,000. Hypokalemia at 3.1, magnesium low at 1.6 which will be replaced, mildly elevated creatinine at 1.1, when baseline is 0.8. 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 Initial troponin normal. Urinalysis is not suspicious for UTI with many squamous cells, wbc's 31-50, 2+ protein, 1+ blood, 1+ bilirubin, 4+ urobilinogen, RBC 6-10. Chest x-ray shows no acute cardiopulmonary abnormality. Further imaging completed due to bruising on her hip and knees which showed osteoarthritis without acute osseous abnormality. CT head showed no acute intracranial abnormality, age-related findings. EKG showed normal sinus rhythm, rate of 76 beats per minute, incomplete right bundle branch, otherwise no acute ST T-wave changes. She will be admitted into the hospital under observation status, with IV fluid hydration, replenish electrolytes, will continue IV Rocephin until urine culture results returned with further monitoring of her mental status. Code Status- Do not resuscitate POA- Naidachidi Jo Patterson Review of Systems Review of Systems: All systems reviewed & are unremarkable except as noted in HPI and below [facility] Past Medical History Medical History (Updated 06/30/21 @ 15:39 by Karley Vergara PA-C) B12 deficiency Chronic kidney disease, stage 3 Diastolic dysfunction noted on echocardiogram 12/2016: Grade 1 diastolic dysfunction increased left heart filling pressures, EF 65% mild pulmonary valve regurgitation Fall Hx of tongue cancer Hypokalemia Hypomagnesemia Hypothyroidism Impaired glucose tolerance Iron deficiency Macular degeneration Obstructive lung disease mild on PFTs 05/2006 Paroxysmal atrial flutter (~04/2019) Squamous cell cancer of tongue (~2008) Surgical History Surgical History History of colonoscopy with polypectomy (~2008) History of cystoscopy with bladder polypectomy History of dilation and curettage (~03/2019) Family History Family History Father Oral cancer Sibling Colorectal cancer sister Social History Social History Social History: She lives at [facility]. She is a lifelong nonsmoker. She used to drink alcohol on occasion and only in moderation but has not drank alcohol in many years. 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 She has never been and does not have any children. Surrogate decision maker: Jo (niece) Co
[2021-06-30 16:52] LABS: Troponin I < 0.012 ng/mL (0.000-0.034)
--- NOTE | 2021-06-30 16:52 | ADMGEN ---
This patient, Rakel Jeronimo, was admitted to 2 Medical Room 261-01. Patient/family oriented to hospital policies and general routines including ID bracelet, bed and alarms, visiting hours, pain management, procedures, bathroom and other care routines, personal items, smoking policy, room service/diet, and visiting hours. Information on how to activate the Rapid Response Team has been discussed. Patient/Family are encouraged to report perceived risks to care and to ask questions if they do not understand what they are told or what they should do.
[2021-06-30] MEDS: MAGNESIUM SULFATE 3GM/D5W100ML 3 GM/100 ML BAG IVPB (18:50)
[2021-06-30] MEDS: SODIUM CHLORIDE 0.9% IV 1,000 ML 75 ML IV CONT (18:51)
--- NOTE | 2021-06-30 19:12 | PC.NURSE ---
Spoke with Leann MACDONALD re: n=missed dose of 0900 dose of Keppra in ER. Leann instructed to give 500 mg IV dose now and resume BID dosing tomorrow. Also, notified of pt refusal of Lovenox & will order SCDs for patient for VTE prophylaxis.
[2021-06-30] MEDS: levETIRAcetam 500MG/NACL 100ML 500 MG/100 ML BAG 400 MG IVPB (19:38)
--- NOTE | 2021-06-30 19:55 | PC.NURSE ---
patient came up to floor around 1700. after finishing admission, I realized that she had keppra that was ordered and backtimed to be given at 0900. family member of patient said she had not taken any medications that morning. patient was not given IV keppra in Emergency department. Charge Nurse, Dana called Yesseniaiary to figure out what to do. was told to give one dose tonight and start BID keppra in the morning.
[2021-07-01] VITALS (9 sets, daily range): BP systolic 135–156; BP diastolic 60–80; PULSE 68–78; RESP 16–20; TEMP 36.3–36.7; O2SAT 94–96; BMI 21.6
[2021-07-01 06:16] LABS: Basophils Percent Auto 0.2 % (0.2-1.2); Eosinophils Percent Auto 0.3 % (0-4.4); Hematocrit 39.7 % (37.0-47.0); Hemoglobin 13.1 g/dL (12.0-15.0); Immature Granulocyte Absolute 0.04 K/mm3 (0.00-0.031); Immature Granulocyte Percent A 0.5 % (0-0.5); Lymphocytes Absolute Auto 1.29 K/mm3 (0.9-3.2); Mean Corpuscular Hemoglobin 32.4 pg (26-34); Mean Corpuscular Volume 98.3 fl (80-100); Mean Platelet Volume 13.6 fl (7.4-10.4); Monocytes Absolute Auto 0.6 K/mm3 (0.1-0.6); Monocytes Percent Auto 7.5 % (2.6-8.5); Neutrophils Absolute Auto 6.6 K/mm3 (1.3-6.7); Neutrophils Percent Auto 76.5 % (45.5-73.1); Platelet Count Result 133 k/mm3 (150-375); Red Blood Count 4.04 M/mm3 (4.2-5.4); Red Cell Distribution Width 13.7 % (11.5-14.5); White Blood Count 8.6 K/mm3 (4.5-10.0)
[2021-07-01 06:33] LABS: Alanine Aminotransferase 9 U/L (4-35); Albumin Level 3.2 g/dL (3.5-5.1); Alkaline Phosphatase 61 U/L (38-126); Anion Gap 6 mmol/L (8-16); Aspartate Amino Transferase 22 U/L (14-36); Bilirubin,Total 1.2 mg/dL (0.2-1.3); Blood Urea Nitrogen 17 mg/dL (7-17); Calcium 8.4 mg/dL (8.4-10.2); Carbon Dioxide 28 mmol/L (22-30); Chloride 103 mmol/L (98-107); Estimated CRCL calculation 49 ml/min; Estimated Glomerular Filt Rate > 60; Glucose 86 mg/dL (65-110); Magnesium 2.5 mg/dL (1.6-2.3); Potassium 2.8 mmol/L (3.4-5.0); Sodium 137 mmol/L (137-145)
[2021-07-01 07:06] LABS: Thyroid Stimulating Hormone Reflex 0.754 uIU/mL (0.465-4.68)
[2021-07-01 07:11] LABS: Vitamin B12 > 1000.0 pg/mL (239-931)
[2021-07-01] MEDS: LACTATED RINGERS 1,000 ML 60 ML IV CONT ×2 (08:34→18:16)
[2021-07-01] MEDS: KCL 20 MEQ/SW 100 ML 100 ML 50 MEQ IVPB ×2 (08:40→09:10)
[2021-07-01] MEDS: POTASSIUM CHLORIDE 20 MEQ TABLET 40 MEQ PO (09:09)
[2021-07-01] MEDS: FLUDROCORTISONE ACETATE 0.1 MG TABLET PO (09:09)
[2021-07-01] MEDS: CYANOCOBALAMIN 1,000 MCG TABLET 1000 MCG PO (09:09)
[2021-07-01] MEDS: ASPIRIN 81 MG CHEWABLE TABLET BY MOUTH (09:09)
[2021-07-01] MEDS: PANTOPRAZOLE SODIUM IV 40 MG VIAL IV PUSH ×2 (09:09→20:46)
[2021-07-01] MEDS: levETIRAcetam 500MG/NACL 100ML 500 MG/100 ML BAG 400 MG IVPB (13:30)
--- NOTE | 2021-07-01 14:12 | PC.NURSE ---
This patient, Rakel Jeronimo, was transferred to [CT ] on 07/01/21 at 1412.
--- NOTE | 2021-07-01 14:16 | PC.NURSE ---
Pt was screaming and hitting me as I attempted to scan her wristband in order to hang the next IVPB. During this time, the speech therapist technician came to draw pt's blood for a potassium level and pt continued screaming, cursing, spitting, kicking and hitting the speech therapist technician. The [employer] appeared to assist control pt. Pt attempted to kick and hit the [employer] as well. After approximately 15 minutes of attempting to calm pt down to no avail, I contacted pt's Jo perry, the POA and asked if she could come up MARCIA. During all of this, transporters arrived to take pt to CT for a CT w/contrast but pt refused to go, refused to wear a mask, and began cursing, screaming, and hitting the transporters as well.
--- NOTE | 2021-07-01 14:22 | PM.IMPN ---
Progress Note: A&P Assessment and Plan (1) Failure to thrive: Status: Acute Assessment and Plan: Per family patient came in due to not eating and drinking. The family states she is at her baseline with mental status and her mood. She is more sleepy today, but the family states that is not uncommon for her to be sleeping most of the day. Could have a UTI verses progression of her dementia causing her to have failure to thrive Continue regular diet, with supplementation Will D/c IV fluids at this time. She appears euvolemic and labs are improved and she is eating/drinking/cooperating to take her medications. Continue physical and occupational therapy B12 normal, TSH normal. Pending folic acid, B12 See how she does over the next few days at the hospital Continue monitoring. 07/01/21: Per the nurse the patient has been refusing to go down for CT scan, lab draws, it took her 45 minutes to take her medications this morning, she has been eating some. The patient's niece is in the room who has talked to the patient and is in agreement to replace her IV to continue her IV antibiotics, and talked to her about her CT scans. The patient's niece states she can be with her to help these tests get done so we can figure out what is going on. Patient will most likely have to stay overnight to get her CT scans, continue monitoring her potassium level and monitoring her urine culture results. (2) Leukocytosis: Code(s): D72.829 - Elevated white blood cell count, unspecified Status: Acute Assessment and Plan: Leukocytosis with elevated neutrophils, chest x-ray normal, urinalysis slightly abnormal. Will also get a CT of her abdomen because she is reporting abdominal pain and there is no clear-cut reason for her leukocytosis 07/01/21: Leukocytosis normalized today. Will continue IV Rocephin until urine culture comes back. Continue monitoring. (3) Dehydration: Code(s): E86.0 - Dehydration Status: Acute Assessment and Plan: Discontinue IV fluids at this time, appears euvolemic and eating/drinking. Continue monitoring. (4) Acute hypokalemia: Code(s): E87.6 - Hypokalemia Status: Acute Assessment and Plan: Potassium low at 2.8 this morning. She was given Potassium supplementation this morning .Magnesium normal today after supplementation given. Pending 1400 recheck potassium Continue monitoring (5) Hx of tongue cancer: Code(s): Z85.810 - Personal history of malignant neoplasm of tongue Status: Acute Assessment and Plan: Her niece is concerned for recurrence of her tongue cancer. Patient is not cooperative to allow me to look inside of her mouth or to stick out her tongue. We will get a CT soft tissue of head and neck to see if there is any type of abnormality your growth to her tongue or mouth. (6) Seizure: Code(s): R56.9 - Unspecified convulsions Status: Acute Assessment and Plan: She took her medications this morning. Will continue her PO Keppra at this time. Seizure precautions in place (7) Paroxysmal atrial flutter: Onset Date: ~04/2019 Code(s): I48.92 - Unspecified atrial flutter Status: Acute Assessment and Plan: Currently in normal sinus rhythm. She is not on chronic anticoagulation given her age and fall risks. Tele shows NSR rate 71 bpm, two tachycardic episodes with rate 118 and 128 bpm, appears to be sinus tachycardia but cannot rule out atrial flutter given her history. Will D/c Tele at this time. Will keep her on DVT prophylaxis with Lovenox while in the hospital. Time
[2021-07-01 17:11] LABS: Potassium 4.6 mmol/L (3.4-5.0)
[2021-07-01] MEDS: CITALOPRAM HYDROBROMIDE 5 MG TABLET BY MOUTH (17:51)
[2021-07-01] MEDS: ENOXAPARIN 40 MG/0.4 ML SYRINGE SUB-Q (17:54)
[2021-07-01] MEDS: levETIRAcetam 500 MG TABLET PO (20:46)
[2021-07-01] MEDS: DONEPEZIL HCL 10 MG TABLET BY MOUTH (20:46)
[2021-07-02] VITALS (10 sets, daily range): BP systolic 132–157; BP diastolic 81–94; PULSE 55–83; RESP 16–20; TEMP 36.6–37.1; O2SAT 96–98
[2021-07-02] MEDS: LACTATED RINGERS 1,000 ML 60 ML IV CONT (03:00)
[2021-07-02] MEDS: CYANOCOBALAMIN 1,000 MCG TABLET 1000 MCG PO (09:19)
[2021-07-02] MEDS: ASPIRIN 81 MG CHEWABLE TABLET BY MOUTH (09:19)
[2021-07-02] MEDS: levETIRAcetam 500 MG TABLET PO ×2 (09:19→20:48)
[2021-07-02] MEDS: FLUDROCORTISONE ACETATE 0.1 MG TABLET PO (09:19)
[2021-07-02] MEDS: PANTOPRAZOLE SODIUM IV 40 MG VIAL IV PUSH ×2 (09:20→20:49)
--- NOTE | 2021-07-02 15:21 | PM.IMPN ---
Progress Note: A&P Assessment and Plan (1) Failure to thrive: Status: Acute Assessment and Plan: Per family patient came in due to not eating and drinking. The family states she is at her baseline with mental status and her mood. She is more sleepy today, but the family states that is not uncommon for her to be sleeping most of the day. Possible progression of her dementia causing her to have failure to thrive Continue regular diet, with supplementation Will D/c IV fluids at this time. She appears euvolemic and labs are improved and she is eating/drinking/cooperating to take her medications. Continue physical and occupational therapy B12 normal, TSH normal. Pending folic acid, B12 >1000 See how she does over the next few days at the hospital Did find pneumonia on CT so she was started on abx for this, could be contributing Also found enlarged lymph node on CT consistent w/ recurrence of metastatic disease, Dr. Massey was consulted. (2) Pneumonia: Code(s): J18.9 - Pneumonia, unspecified organism Status: Acute Assessment and Plan: -CT abd/pelv w/ RLL pneumonia, pt was started on IV azithromycin and rocephin -Leukocytosis resolved -97% on RA, no increased work of breathing, lungs CTA bilaterally -Cont IV abx (3) Dehydration: Code(s): E86.0 - Dehydration Status: Acute Assessment and Plan: Discontinue IV fluids at this time, appears euvolemic and eating/drinking. Continue monitoring. (4) Acute hypokalemia: Code(s): E87.6 - Hypokalemia Status: Acute Assessment and Plan: Potassium low at 2.8. She was given Potassium supplementation .Magnesium normal after supplementation given. Repeat Potassium WNL. (5) Hx of tongue cancer: Code(s): Z85.810 - Personal history of malignant neoplasm of tongue Status: Acute Assessment and Plan: -Her niece is concerned for recurrence of her tongue cancer. -CT soft tissue of head and neck shows enlarged L mid internal jugular lymph node consistent with metastatic disease -Dr. Massey consulted, appreciate his recommendations regarding further management -She previously saw an ENT specialist (but no oncologist) per niece who is providing history, this physician however was in [place] and they would like the transfer care to someone local (6) Seizure: Code(s): R56.9 - Unspecified convulsions Status: Acute Assessment and Plan: Continue home seizure meds. Will continue her PO Keppra at this time. Seizure precautions in place (7) Paroxysmal atrial flutter: Onset Date: ~04/2019 Code(s): I48.92 - Unspecified atrial flutter Status: Acute Assessment and Plan: Currently in normal sinus rhythm. She is not on chronic anticoagulation given her age and fall risks. Tele shows NSR rate 71 bpm, two tachycardic episodes with rate 118 and 128 bpm, appears to be sinus tachycardia but cannot rule out atrial flutter given her history. Will D/c Tele at this time. Will keep her on DVT prophylaxis with Lovenox while in the hospital. Subjective Date/time seen: 07/02/21 15:21 Interval history: Pt is alert to person only. She is calm and attempts to follow most commands. Niece is at bedside. Pt has no specific complaints but does seem to be tender in her epigastric area. Further hx limited secondary to mental status. Review of Systems Review of Systems: ROS unobtainable: Yes unobtainable due to mental status Exam Narrative: General: 81-year-old woman laying flat in bed, resting. Easily arousable. Appears comfortable. In no acute distress. HEENT: Atraumatic. Normocephalic. So
[2021-07-02] MEDS: ENOXAPARIN 40 MG/0.4 ML SYRINGE SUB-Q (17:07)
[2021-07-02] MEDS: CITALOPRAM HYDROBROMIDE 5 MG TABLET BY MOUTH (18:19)
[2021-07-02] MEDS: DONEPEZIL HCL 10 MG TABLET BY MOUTH (20:48)
[2021-07-03] VITALS (10 sets, daily range): BP systolic 130–158; BP diastolic 72–87; PULSE 52–80; RESP 16–20; TEMP 36.3–36.6; O2SAT 96–99
[2021-07-03 06:48] LABS: Basophils Percent Auto 0.3 % (0.2-1.2); Eosinophils Absolute Auto 0.1 K/mm3 (0-0.3); Eosinophils Percent Auto 1.6 % (0-4.4); Hematocrit 36.5 % (37.0-47.0); Hemoglobin 12.3 g/dL (12.0-15.0); Immature Granulocyte Absolute 0.06 K/mm3 (0.00-0.031); Immature Platelet Fraction Pct 18.1 % (0.9-11.2); Lymphocytes Absolute Auto 1.43 K/mm3 (0.9-3.2); Lymphocytes Percent Auto 22.8 % (18.3-44.2); Mean Corpuscular HGB Conc 33.7 g/dl (32-36); Mean Corpuscular Volume 97.9 fl (80-100); Mean Platelet Volume 13.2 fl (7.4-10.4); Monocytes Absolute Auto 0.6 K/mm3 (0.1-0.6); Monocytes Percent Auto 9.6 % (2.6-8.5); Neutrophils Absolute Auto 4.1 K/mm3 (1.3-6.7); Neutrophils Percent Auto 64.7 % (45.5-73.1); Platelet Count Result 131 k/mm3 (150-375); Red Blood Count 3.73 M/mm3 (4.2-5.4); Red Cell Distribution Width 13.2 % (11.5-14.5); White Blood Count 6.3 K/mm3 (4.5-10.0)
[2021-07-03 07:09] LABS: Alanine Aminotransferase 14 U/L (4-35); Albumin Level 2.8 g/dL (3.5-5.1); Alkaline Phosphatase 57 U/L (38-126); Anion Gap 8 mmol/L (8-16); Aspartate Amino Transferase 33 U/L (14-36); Bilirubin,Total 0.9 mg/dL (0.2-1.3); Blood Urea Nitrogen 11 mg/dL (7-17); Calcium 7.8 mg/dL (8.4-10.2); Carbon Dioxide 26 mmol/L (22-30); Chloride 103 mmol/L (98-107); Estimated CRCL calculation 49 ml/min; Estimated Glomerular Filt Rate > 60; Glucose 92 mg/dL (65-110); Potassium 3.2 mmol/L (3.4-5.0); Sodium 137 mmol/L (137-145)
[2021-07-03] MEDS: POTASSIUM CHLORIDE 20 MEQ TABLET 40 MEQ PO (09:08)
[2021-07-03] MEDS: metroNIDAZOLE 500 MG/ISO 100ML 500 MG/100 ML BAG 100 MG IVPB ×3 (09:08→23:49)
[2021-07-03] MEDS: ASPIRIN 81 MG CHEWABLE TABLET BY MOUTH (09:12)
[2021-07-03] MEDS: CYANOCOBALAMIN 1,000 MCG TABLET 1000 MCG PO (09:12)
[2021-07-03] MEDS: levETIRAcetam 500 MG TABLET PO ×2 (09:12→21:07)
[2021-07-03] MEDS: FLUDROCORTISONE ACETATE 0.1 MG TABLET PO (09:13)
[2021-07-03] MEDS: PANTOPRAZOLE SODIUM IV 40 MG VIAL IV PUSH ×2 (09:13→21:07)
--- NOTE | 2021-07-03 11:19 | PCOTNOTE ---
Attempted to see patient this am, however patient declined stating, Not right now. I'm too tired.
--- NOTE | 2021-07-03 13:00 | PDONCCN ---
HPI - Date of Consult Date/Time: 07/03/21 13:00 Requesting Physician: Alexa Cheung PA-C Primary Care Provider: INVESTIGATOR VICE PHYSICIAN - Consult Narrative Reason for consult: Relapsed head and neck cancer Narrative: Rakel Jeronimo is a 81 year old female who is a poor historian and would not cooperate with any history taking and examination. Patient has a history of squamous cell carcinoma of the tongue diagnosed in 2009 status post resection by Dr. Mendes. She had relapsed disease in January of 2016 and further resection was performed by Dr. Mendes and came back positive for squamous cell carcinoma. She has not received any radiation therapy and chemotherapy. This history was taken from patient knees be on the phone. She now came into the hospital with generalized weakness and failure to thrive. She has been eating poorly and drinking poorly and found to be dehydrated. She is also dealing with left eye infection. She had some diarrhea and urinary infection. She has been losing weight due to poor calorie intake. Review of Systems - Review of Systems All systems reviewed & are unremarkable except as noted in [facility] and [facility] Medical History: Medical History (Last Updated 06/30/21 @ 15:39 by Karley Vergara PA-C) B12 deficiency Chronic kidney disease, stage 3 Diastolic dysfunction noted on echocardiogram 12/2016: Grade 1 diastolic dysfunction increased left heart filling pressures, EF 65% mild pulmonary valve regurgitation Fall Hx of tongue cancer Hypokalemia Hypomagnesemia Hypothyroidism Impaired glucose tolerance Iron deficiency Macular degeneration Obstructive lung disease mild on PFTs 05/2006 Paroxysmal atrial flutter Onset Date: ~04/2019 Squamous cell cancer of tongue Onset Date: ~2008 Surgical History: Surgical History (Last Reviewed 06/30/21 @ 15:24 by Karley Vergara PA-C) History of colonoscopy with polypectomy Onset Date: ~2008 History of cystoscopy with bladder polypectomy History of dilation and curettage Onset Date: ~03/2019 Family History: Family History (Last Reviewed 06/30/21 @ 17:30 by Maia Abdi RN) Father Oral cancer Sibling Colorectal cancer sister - Social History Social History: Social History (Last Reviewed 06/30/21 @ 15:27 by Karley Vergara PA-C) Gender Identity: Gender identity (if verbalized by the patient): Female Sexual Orientation: Sexual Orientation (if Verbalized by the Patient): Straight or Heterosexual Alcohol Use: Alcohol intake: never Substance Use: Substance use: never Substance use type: does not use Others: Spiritual care concerns: No Smoking Status: Smoking status: Never smoker Second hand tobacco smoke exposure: No Meds Home Medications Medication Instructions Recorded Confirmed Type mecobalamin (vitamin B12) 1,000 1,000 mcg SUBLINGUAL DAILY 05/26/19 06/30/21 History mcg disintegrating tablet,sublingual donepezil 10 mg tablet See Rx Instructions .ROUTE 12/27/19 06/30/21 Rx .COMPLEX #90 tablet aspirin 81 mg chewable tablet See Rx Instructions .ROUTE 02/27/20 06/30/21 Rx .COMPLEX #90 tablet potassium chloride 20 mEq See Rx Instructions .ROUTE 02/27/20 06/30/21 Rx tablet,extended release(part/cryst) .COMPLEX #180 tablet acetaminophen 500 mg PO TID PRN 02/18/21 06/30/21 History citalopram 5 mg DAILY 02/18/21 06/30/21 History fludrocortisone 0.1 mg PO DAILY 02/18/21 06/30/21 History levetiracetam [Keppra] 500 mg PO BID #60 tablet 02/20/21 06/30/21 Rx Allergies Allergy/AdvReac Type Severity Reaction Status Date / Time No Known Allergies Allergy Unknown Verified 06/19/21 10:14 Results - Labs CBC & Chem 7: 07/03/21 06:26 07/03/21 06:26 Labs: Short CBC 07/03/21 Range/Units 06:26 WBC 6.3 (4.5-10.0) K/mm3 Hgb 12.3 (12.0-15.0) g/dL Hct 36.5 L (37.0-47.0) % Plt Count 131 L (150-375) k/mm3 BMP 07/03/21
--- NOTE | 2021-07-03 13:28 | PCOTNOTE ---
Attempted to see pt. again this afternoon, with pt. presenting sleeping with refusal to participate in any ADLs stating, I don't feel like it. Will attempt tomorrow, however pt. stated she would not feel up to it tomorrow either.
--- NOTE | 2021-07-03 16:07 | PM.IMPN ---
Progress Note: A&P Assessment and Plan (1) Failure to thrive: Status: Acute Assessment and Plan: Per family patient came in due to not eating and drinking. The family states she is at her baseline with mental status and her mood. She is more sleepy today, but the family states that is not uncommon for her to be sleeping most of the day. Possible progression of her dementia causing her to have failure to thrive Continue regular diet, with supplementation Will D/c IV fluids at this time. She appears euvolemic and labs are improved and she is eating/drinking/cooperating to take her medications. Continue physical and occupational therapy B12 normal, TSH normal. Pending folic acid, B12 >1000 Did find pneumonia on CT so she was started on abx for this, could be contributing Also found enlarged lymph node on CT consistent w/ recurrence of metastatic disease, Dr. Massey was consulted RUQ US w/ abnormal gallbladder wall thickening, attempted HIDA but patient would not cooperate. Added flagyl to cover and will monitor. See below. (2) Pneumonia: Code(s): J18.9 - Pneumonia, unspecified organism Status: Acute Assessment and Plan: -CT abd/pelv w/ RLL pneumonia, pt was started on IV azithromycin and rocephin -Leukocytosis resolved -97% on RA, no increased work of breathing, lungs CTA bilaterally -Cont IV abx (3) Dehydration: Code(s): E86.0 - Dehydration Status: Acute Assessment and Plan: Discontinue IV fluids at this time, appears euvolemic and eating/drinking. Continue monitoring. (4) Acute hypokalemia: Code(s): E87.6 - Hypokalemia Status: Acute Assessment and Plan: Potassium monitored and replaced. Today 3.2, will do 40 meq PO and recheck in AM. (5) Hx of tongue cancer: Code(s): Z85.810 - Personal history of malignant neoplasm of tongue Status: Acute Assessment and Plan: -Her niece is concerned for recurrence of her tongue cancer. -CT soft tissue of head and neck shows enlarged L mid internal jugular lymph node consistent with metastatic disease -She previously saw an ENT specialist (but no oncologist) per niece who is providing history, this physician however was in [place] and they would like the transfer care to someone local -Dr. Massey was consulted and evaluated patient today. He has ordered a biopsy and patient is going to follow up with him on outpatient basis. (6) Seizure: Code(s): R56.9 - Unspecified convulsions Status: Acute Assessment and Plan: Continue home seizure meds. Will continue her PO Keppra at this time. Seizure precautions in place (7) Paroxysmal atrial flutter: Onset Date: ~04/2019 Code(s): I48.92 - Unspecified atrial flutter Status: Acute Assessment and Plan: Currently in normal sinus rhythm. She is not on chronic anticoagulation given her age and fall risks. Tele shows NSR rate 71 bpm, two tachycardic episodes with rate 118 and 128 bpm, appears to be sinus tachycardia but cannot rule out atrial flutter given her history. Will D/c Tele at this time. Will keep her on DVT prophylaxis with Lovenox while in the hospital. (8) Thickening of wall of gallbladder: Code(s): K82.8 - Other specified diseases of gallbladder Status: Acute Assessment and Plan: -As seen on CT and RUQ US -Attempted HIDA but patient was uncooperative -Added flagyl to cover -No murphys sign but does have epigastric tenderness. -Has minimal leukocytosis, no fever or tachycardia. Will continue monitoring. Consider general surgery but lower suspicion for acute cholecystitis at this
[2021-07-03] MEDS: ENOXAPARIN 40 MG/0.4 ML SYRINGE SUB-Q (17:28)
[2021-07-03] MEDS: CITALOPRAM HYDROBROMIDE 5 MG TABLET BY MOUTH (17:28)
[2021-07-03] MEDS: DONEPEZIL HCL 10 MG TABLET BY MOUTH (21:07)
[2021-07-04] VITALS (9 sets, daily range): BP systolic 131–173; BP diastolic 77–83; PULSE 56–95; RESP 12–18; TEMP 36.1–36.6; O2SAT 95–97
[2021-07-04 07:40] LABS: Alanine Aminotransferase 15 U/L (4-35); Albumin Level 3.2 g/dL (3.5-5.1); Alkaline Phosphatase 64 U/L (38-126); Anion Gap 9 mmol/L (8-16); Aspartate Amino Transferase 31 U/L (14-36); Blood Urea Nitrogen 5 mg/dL (7-17); Calcium 7.9 mg/dL (8.4-10.2); Carbon Dioxide 28 mmol/L (22-30); Chloride 99 mmol/L (98-107); Estimated CRCL calculation 57 ml/min; Estimated Glomerular Filt Rate > 60; Glucose 87 mg/dL (65-110); Lipase 49 U/L (23-300); Potassium 2.8 mmol/L (3.4-5.0); Sodium 136 mmol/L (137-145)
[2021-07-04 07:42] LABS: Basophils Percent Auto 0.4 % (0.2-1.2); Eosinophils Absolute Auto 0.1 K/mm3 (0-0.3); Eosinophils Percent Auto 1.7 % (0-4.4); Hematocrit 39.5 % (37.0-47.0); Hemoglobin 13.5 g/dL (12.0-15.0); Immature Granulocyte Percent A 1.3 % (0-0.5); Immature Platelet Fraction Pct 17.5 % (0.9-11.2); Lymphocytes Absolute Auto 1.28 K/mm3 (0.9-3.2); Lymphocytes Percent Auto 17.2 % (18.3-44.2); Mean Corpuscular HGB Conc 34.2 g/dl (32-36); Mean Corpuscular Volume 93.6 fl (80-100); Mean Platelet Volume 13.2 fl (7.4-10.4); Monocytes Absolute Auto 0.8 K/mm3 (0.1-0.6); Monocytes Percent Auto 10.9 % (2.6-8.5); Neutrophils Absolute Auto 5.1 K/mm3 (1.3-6.7); Neutrophils Percent Auto 68.5 % (45.5-73.1); Platelet Count Result 148 k/mm3 (150-375); Red Blood Count 4.22 M/mm3 (4.2-5.4); White Blood Count 7.5 K/mm3 (4.5-10.0)
[2021-07-04] MEDS: metroNIDAZOLE 500 MG/ISO 100ML 500 MG/100 ML BAG 100 MG IVPB ×2 (09:06→16:25)
[2021-07-04] MEDS: KCL 20 MEQ/SW 100 ML 100 ML 50 MEQ IVPB ×2 (09:06→13:15)
[2021-07-04] MEDS: levETIRAcetam 500 MG TABLET PO ×2 (09:07→19:38)
[2021-07-04] MEDS: CYANOCOBALAMIN 1,000 MCG TABLET 1000 MCG PO (09:07)
[2021-07-04] MEDS: PANTOPRAZOLE SODIUM IV 40 MG VIAL IV PUSH ×2 (09:07→19:38)
[2021-07-04] MEDS: ASPIRIN 81 MG CHEWABLE TABLET BY MOUTH (09:07)
[2021-07-04] MEDS: ACETAMINOPHEN 325 MG TABLET 650 MG PO (09:24)
--- NOTE | 2021-07-04 10:50 | PCNFU ---
Nutrition Follow-Up Complete: Inadequate Oral Intake as related to dementia as evidenced by poor po intake reported Goal: Meet estimated nutritional needs Patient has limited progress towards goal. We will continue current goal. Pt current nutrition is Regular with Ensure compact BID. Last recorded weight is 60.7 kg, no new weight to report. Bowel Motility:+BM reported 07/01 Labs Reviewed: K 2.8,Na 136, Alb 3.2 Meds Noted:Keppra, Protonix, B12 Skin: WNL Additional Notes: Patient remains on a regular diet with Ensure compact. Spoke with TORRES Dill today regarding poor po intake. Plans to start IV fluids today. Noted enlarged lymph node on CT consistent w/ recurrence of metastatic disease. Oncology consult. Monitoring: Will monitor every 3 days.
--- NOTE | 2021-07-04 11:50 | PCOTNOTE ---
Attempted to see Patient for OT A.M. treatment session. Patient refused, stated, i'm sleeping, just leave me alone, I dont even want my lunch, I want to sleep .
--- NOTE | 2021-07-04 12:05 | PC.NURSE ---
pt to radiology via stretcher
[2021-07-04] MEDS: LACTATED RINGERS 1,000 ML 100 ML IV CONT (13:14)
--- NOTE | 2021-07-04 14:25 | PM.IMPN ---
Progress Note: A&P Assessment and Plan (1) Failure to thrive: Status: Acute Assessment and Plan: Per family patient came in due to not eating and drinking. The family states she is at her baseline with mental status and her mood. She is more sleepy today, but the family states that is not uncommon for her to be sleeping most of the day. Possible progression of her dementia causing her to have failure to thrive Attempted regular diet, with supplementation, however patient has only been eating 0-15% of her meals so she was placed back on IVF. Continue attempting physical and occupational therapy B12 normal, TSH normal. Pending folic acid, B12 >1000 Did find pneumonia on CT so she was started on abx for this, could be contributing Also found enlarged lymph node on CT consistent w/ recurrence of metastatic disease, Dr. Massey was consulted RUQ US w/ abnormal gallbladder wall thickening, attempted HIDA but patient would not cooperate. Added flagyl to cover and will monitor. See below. (2) Pneumonia: Code(s): J18.9 - Pneumonia, unspecified organism Status: Acute Assessment and Plan: -CT abd/pelv w/ RLL pneumonia, pt was started on IV azithromycin and rocephin -Leukocytosis resolved -97% on RA, no increased work of breathing, lungs CTA bilaterally -Cont IV abx (3) Dehydration: Code(s): E86.0 - Dehydration Status: Acute Assessment and Plan: IV fluids (4) Acute hypokalemia: Code(s): E87.6 - Hypokalemia Status: Acute Assessment and Plan: Potassium monitored and replaced. Today 2.8, likely due to decreased PO intake. Replaced with 40 meq IV. Recheck BMP this afternoon. (5) Hx of tongue cancer: Code(s): Z85.810 - Personal history of malignant neoplasm of tongue Status: Acute Assessment and Plan: -Her niece is concerned for recurrence of her tongue cancer. -CT soft tissue of head and neck shows enlarged L mid internal jugular lymph node consistent with metastatic disease -She previously saw an ENT specialist (but no oncologist) per niece who is providing history, this physician however was in [place] and they would like the transfer care to someone local -Dr. Massey was consulted and evaluated patient today. He has ordered a biopsy to be completed today and patient is going to follow up with him on outpatient basis. (6) Seizure: Code(s): R56.9 - Unspecified convulsions Status: Acute Assessment and Plan: Continue home seizure meds. Will continue her PO Keppra at this time. Seizure precautions in place (7) Paroxysmal atrial flutter: Onset Date: ~04/2019 Code(s): I48.92 - Unspecified atrial flutter Status: Acute Assessment and Plan: Currently in normal sinus rhythm. She is not on chronic anticoagulation given her age and fall risks. Tele shows NSR rate 71 bpm, two tachycardic episodes with rate 118 and 128 bpm, appears to be sinus tachycardia but cannot rule out atrial flutter given her history. Will D/c Tele at this time. Will keep her on DVT prophylaxis with Lovenox while in the hospital. (8) Thickening of wall of gallbladder: Code(s): K82.8 - Other specified diseases of gallbladder Status: Acute Assessment and Plan: -As seen on CT and RUQ US -Attempted HIDA but patient was uncooperative -Added flagyl to cover -No murphys sign but does have epigastric tenderness. -Has minimal leukocytosis, no fever or tachycardia. Will continue monitoring. Consider general surgery but lower suspicion for acute cholecystitis at this time Subjective Date/time seen: 07/04/21 14:
[2021-07-04 14:54] LABS: Anion Gap 4 mmol/L (8-16); Blood Urea Nitrogen 7 mg/dL (7-17); Calcium 8.1 mg/dL (8.4-10.2); Carbon Dioxide 28 mmol/L (22-30); Chloride 101 mmol/L (98-107); Estimated CRCL calculation 49 ml/min; Estimated Glomerular Filt Rate > 60; Glucose 125 mg/dL (65-110); Potassium 3.6 mmol/L (3.4-5.0); Sodium 133 mmol/L (137-145)
[2021-07-04] MEDS: ENOXAPARIN 40 MG/0.4 ML SYRINGE SUB-Q (17:37)
[2021-07-04] MEDS: FLUDROCORTISONE ACETATE 0.1 MG TABLET PO (17:38)
[2021-07-04] MEDS: CITALOPRAM HYDROBROMIDE 5 MG TABLET BY MOUTH (17:38)
[2021-07-04] MEDS: DONEPEZIL HCL 10 MG TABLET BY MOUTH (19:38)
[2021-07-05] VITALS (10 sets, daily range): BP systolic 151–197; BP diastolic 67–98; PULSE 60–74; RESP 16–18; TEMP 36.1–36.8; O2SAT 90–95
[2021-07-05] MEDS: metroNIDAZOLE 500 MG/ISO 100ML 500 MG/100 ML BAG 100 MG IVPB ×4 (00:35→23:40)
[2021-07-05] MEDS: LACTATED RINGERS 1,000 ML 100 ML IV CONT ×2 (00:35→15:50)
[2021-07-05 05:26] LABS: Basophils Percent Auto 0.6 % (0.2-1.2); Eosinophils Absolute Auto 0.2 K/mm3 (0-0.3); Eosinophils Percent Auto 2.5 % (0-4.4); Hematocrit 37.9 % (37.0-47.0); Hemoglobin 12.7 g/dL (12.0-15.0); Immature Granulocyte Absolute 0.13 K/mm3 (0.00-0.031); Immature Granulocyte Percent A 2.1 % (0-0.5); Lymphocytes Absolute Auto 1.07 K/mm3 (0.9-3.2); Lymphocytes Percent Auto 16.9 % (18.3-44.2); Mean Corpuscular HGB Conc 33.5 g/dl (32-36); Mean Corpuscular Hemoglobin 32.2 pg (26-34); Mean Corpuscular Volume 95.9 fl (80-100); Mean Platelet Volume 12.5 fl (7.4-10.4); Monocytes Absolute Auto 0.7 K/mm3 (0.1-0.6); Monocytes Percent Auto 11.4 % (2.6-8.5); Neutrophils Absolute Auto 4.2 K/mm3 (1.3-6.7); Neutrophils Percent Auto 66.5 % (45.5-73.1); Platelet Count Result 139 k/mm3 (150-375); Red Blood Count 3.95 M/mm3 (4.2-5.4); Red Cell Distribution Width 13.1 % (11.5-14.5); White Blood Count 6.3 K/mm3 (4.5-10.0)
[2021-07-05 05:40] LABS: Anion Gap 7 mmol/L (8-16); Blood Urea Nitrogen 7 mg/dL (7-17); Calcium 7.7 mg/dL (8.4-10.2); Carbon Dioxide 27 mmol/L (22-30); Chloride 99 mmol/L (98-107); Estimated CRCL calculation 49 ml/min; Estimated Glomerular Filt Rate > 60; Glucose 100 mg/dL (65-110); Potassium 2.9 mmol/L (3.4-5.0); Sodium 133 mmol/L (137-145)
[2021-07-05] MEDS: FLUDROCORTISONE ACETATE 0.1 MG TABLET PO (08:10)
[2021-07-05] MEDS: PANTOPRAZOLE SODIUM IV 40 MG VIAL IV PUSH ×2 (08:10→20:29)
[2021-07-05] MEDS: CYANOCOBALAMIN 1,000 MCG TABLET 1000 MCG PO (08:10)
[2021-07-05] MEDS: ASPIRIN 81 MG CHEWABLE TABLET BY MOUTH (08:10)
[2021-07-05] MEDS: levETIRAcetam 500 MG TABLET PO ×2 (08:10→20:28)
--- NOTE | 2021-07-05 09:28 | PCNFU ---
Nutrition Follow-Up Complete: Inadequate Oral Intake as related to dementia as evidenced by poor po intake reported Goal: Meet estimated nutritional needs Patient has limited progress towards goal. We will continue current goal. Pt current nutrition is Regular with Ensure compact BID. Last recorded weight is 60.7 kg, no new weight to report. Recommend: new weight. Bowel Motility:+BM reported 07/01 Labs Reviewed:K 2.9, Na 133 Meds Noted:Keppra, Protonix, LR, Rocephin, Protonix, Vit B12, Zithromax Skin:WNL Additional Notes: Patient remains on regular diet with ensure compact BID (220 kcals and 9 gms protein). Spoke with nursing today, patient ate bites of blueberry muffin and eggs. Sips of OJ. Patient starting on IV fluids 07/04, due to poor po intake. Patient has had poor po intake x 5 days. PO intake is encouraged. Monitoring: Will monitor every 3 days.
--- NOTE | 2021-07-05 14:03 | PCPTNOTE ---
Attempted to see patient for PT at this time, however patient refused. Patient reported she is too tired and had difficulty keeping eyes open. Assisted C.N.A. with repositioning patient.
--- NOTE | 2021-07-05 15:15 | PM.IMPN ---
Progress Note: A&P Assessment and Plan (1) Failure to thrive: Status: Acute Assessment and Plan: INTERVAL HISTORY Pt has been admitted for failure to thrive. Pt is a poor historian B12 normal, TSH normal. Pending folic acid, B12 >1000 CT soft tissue shows pneumonia continue iv rocephin and zithromax Also enlarged lymph node on CT consistent w/ recurrence of metastatic disease, Dr. Massey was consulted RUQ US w/ abnormal gallbladder wall thickening, attempted HIDA but patient would not cooperate. Pt started on iv flagyl (2) Pneumonia: Code(s): J18.9 - Pneumonia, unspecified organism Status: Acute Assessment and Plan: -CT abd/pelv w/ RLL pneumonia, pt was started on IV azithromycin and rocephin Continue to monitor WCC (3) Dehydration: Code(s): E86.0 - Dehydration Status: Acute Assessment and Plan: Continue IV fluids, upper lining cementer consult (4) Acute hypokalemia: Code(s): E87.6 - Hypokalemia Status: Acute Assessment and Plan: Potassium monitored and replaced. continue to monitor BMp (5) Hx of tongue cancer: Code(s): Z85.810 - Personal history of malignant neoplasm of tongue Status: Acute Assessment and Plan: INTERVAL HISTORY -Her niece is concerned for recurrence of her tongue cancer. -CT soft tissue of head and neck shows enlarged L mid internal jugular lymph node consistent with metastatic disease -She previously saw an ENT specialist (but no oncologist) per niece who is providing history, this physician however was in [place] and they would like the transfer care to someone local -Dr. Massey was consulted and evaluated patient today. He has ordered a biopsy and patient is going to follow up with him on outpatient basis. (6) Seizure: Code(s): R56.9 - Unspecified convulsions Status: Acute Assessment and Plan: Continue home seizure meds. Will continue her PO Keppra at this time. Seizure precautions in place (7) Paroxysmal atrial flutter: Onset Date: ~04/2019 Code(s): I48.92 - Unspecified atrial flutter Status: Acute Assessment and Plan: INTERVAL HISTORY Currently in normal sinus rhythm. (8) Thickening of wall of gallbladder: Code(s): K82.8 - Other specified diseases of gallbladder Status: Acute Assessment and Plan: -As seen on CT and RUQ US -Attempted HIDA but patient was uncooperative -Added flagyl to cover, continue to watch ltfs Additional Plan Subjective Date/time seen: 07/05/21 15:16 Interval history: 80-year-old female with past medical history of paroxysmal Aflutter, hypothyroidism, dementia (baseline orientation x 1-2), orthostatic hypotension, B12 deficiency, diastolic dysfunction, who presented to the ER from [facility] due to failure to thrive. Pt has history of tongue cancer. PT is a poor historian, pt had extensive labs, ekg and ct scans on admission. CT soft tissue shows Mildly enlarged left mid internal jugular chain lymph node, worsened from 02/18/2021, consistent with metastatic disease. 2. Airspace opacities in right lung lower lobe, consistent with pneumonia. I will consult Dr Massey oncology and treat her pneumonia. UC are negative, I think UTI is unlikely. Review of Systems Review of Systems: All systems reviewed & are unremarkable except as noted in HPI and below Exam Narrative: General:Lethargic chronically ill appearing, dehydrated, unkempt Skin: Pallor Respiratory: Lungs decreased BL Cardiovascular: The heart has a regular rate and rhythm Left arm: Hard pink cast in place from old wrist fracture. [place]
[2021-07-05] MEDS: KCL 20 MEQ/SW 100 ML 100 ML 50 MEQ IVPB (15:49)
[2021-07-05] MEDS: ENOXAPARIN 40 MG/0.4 ML SYRINGE SUB-Q (17:12)
[2021-07-05] MEDS: DONEPEZIL HCL 10 MG TABLET BY MOUTH (20:29)
[2021-07-06] VITALS (8 sets, daily range): BP systolic 147–181; BP diastolic 73–84; PULSE 59–98; RESP 14–20; TEMP 36.2–36.4; O2SAT 95–96
[2021-07-06] MEDS: LACTATED RINGERS 1,000 ML 100 ML IV CONT (04:11)
[2021-07-06 08:59] LABS: Basophils Percent Auto 0.4 % (0.2-1.2); Eosinophils Absolute Auto 0.2 K/mm3 (0-0.3); Eosinophils Percent Auto 3.3 % (0-4.4); Hematocrit 40.1 % (37.0-47.0); Hemoglobin 13.6 g/dL (12.0-15.0); Immature Granulocyte Absolute 0.12 K/mm3 (0.00-0.031); Immature Granulocyte Percent A 1.7 % (0-0.5); Lymphocytes Absolute Auto 1.05 K/mm3 (0.9-3.2); Lymphocytes Percent Auto 14.5 % (18.3-44.2); Mean Corpuscular HGB Conc 33.9 g/dl (32-36); Mean Corpuscular Hemoglobin 32.7 pg (26-34); Mean Corpuscular Volume 96.4 fl (80-100); Mean Platelet Volume 12.6 fl (7.4-10.4); Monocytes Absolute Auto 0.7 K/mm3 (0.1-0.6); Monocytes Percent Auto 10.1 % (2.6-8.5); Neutrophils Absolute Auto 5.1 K/mm3 (1.3-6.7); Platelet Count Result 156 k/mm3 (150-375); Red Blood Count 4.16 M/mm3 (4.2-5.4); Red Cell Distribution Width 13.2 % (11.5-14.5); White Blood Count 7.2 K/mm3 (4.5-10.0)
[2021-07-06 09:16] LABS: Alanine Aminotransferase 12 U/L (4-35); Albumin Level 2.9 g/dL (3.5-5.1); Alkaline Phosphatase 54 U/L (38-126); Anion Gap 11 mmol/L (8-16); Aspartate Amino Transferase 33 U/L (14-36); Bilirubin,Total 0.7 mg/dL (0.2-1.3); Blood Urea Nitrogen 2 mg/dL (7-17); Calcium 7.7 mg/dL (8.4-10.2); Carbon Dioxide 27 mmol/L (22-30); Chloride 100 mmol/L (98-107); Estimated CRCL calculation 57 ml/min; Estimated Glomerular Filt Rate > 60; Glucose 85 mg/dL (65-110); Potassium 2.8 mmol/L (3.4-5.0); Sodium 138 mmol/L (137-145)
[2021-07-06 10:24] LABS: Folic Acid 4.4 ng/mL (2.76->20)
[2021-07-06] MEDS: PANTOPRAZOLE SODIUM IV 40 MG VIAL IV PUSH ×2 (10:35→21:25)
[2021-07-06] MEDS: ASPIRIN 81 MG CHEWABLE TABLET BY MOUTH (10:36)
[2021-07-06] MEDS: metroNIDAZOLE 500 MG/ISO 100ML 500 MG/100 ML BAG 100 MG IVPB ×3 (10:36→23:11)
[2021-07-06] MEDS: levETIRAcetam 500 MG TABLET PO ×2 (10:36→21:25)
[2021-07-06] MEDS: FLUDROCORTISONE ACETATE 0.1 MG TABLET PO (10:36)
[2021-07-06] MEDS: POTASSIUM CHLORIDE 20 MEQ TABLET.ER 40 MEQ PO (10:36)
[2021-07-06] MEDS: KCL 20 MEQ/SW 100 ML 100 ML 50 MEQ IVPB (12:54)
--- NOTE | 2021-07-06 14:06 | PM.IMPN ---
Progress Note: A&P Assessment and Plan (1) Failure to thrive: Status: Acute Assessment and Plan: -Possible progression of her dementia causing her to have failure to thrive -Attempted regular diet, with supplementation, however patient has only been eating 0-15% of her meals so she was placed back on IVF. -Continue attempting physical and occupational therapy -B12 normal, TSH normal. Pending folic acid, B12 >1000 -Did find pneumonia on CT so she was started on abx for this, could be contributing -Also found enlarged lymph node on CT consistent w/ recurrence of metastatic disease, Dr. Massey was consulted -RUQ US w/ abnormal gallbladder wall thickening, attempted HIDA but patient would not cooperate. Added flagyl to cover and will monitor. See below. -Spoke w/ POA today regarding hospice consult. She was agreeable to a consult. (2) Pneumonia: Code(s): J18.9 - Pneumonia, unspecified organism Status: Acute Assessment and Plan: -CT abd/pelv w/ RLL pneumonia, pt was started on IV azithromycin and rocephin -no fevers or leukocytosis, 95% on RA, no cough noted (3) Dehydration: Code(s): E86.0 - Dehydration Status: Acute Assessment and Plan: -Continue IV fluids, tower erector consult -Fire Prevention Engineer continues to follow however patient has had poor PO intake x 5 days now (4) Acute hypokalemia: Code(s): E87.6 - Hypokalemia Status: Acute Assessment and Plan: -secondary to decreased PO intake -Potassium monitored and replaced -continue to monitor BMP (5) Hx of tongue cancer: Code(s): Z85.810 - Personal history of malignant neoplasm of tongue Status: Acute Assessment and Plan: -Her niece is concerned for recurrence of her tongue cancer, states it seems like it hurts her to eat -CT soft tissue of head and neck shows enlarged L mid internal jugular lymph node consistent with metastatic disease -She previously saw an ENT specialist (but no oncologist) per niece who is providing history, this physician however was in [place] and they would like the transfer care to someone local -Dr. Massey was consulted and evaluated patient. He has ordered a biopsy which was completed here and patient is going to follow up with him on outpatient basis. -recurrent cancer the cause of failure to thrive? Discussed hospice consult with POA. (6) Seizure: Code(s): R56.9 - Unspecified convulsions Status: Acute Assessment and Plan: -Continue home seizure meds. Will continue her PO Keppra at this time. -Seizure precautions in place (7) Paroxysmal atrial flutter: Onset Date: ~04/2019 Code(s): I48.92 - Unspecified atrial flutter Status: Acute Assessment and Plan: -Currently in normal sinus rhythm. (8) Thickening of wall of gallbladder: Code(s): K82.8 - Other specified diseases of gallbladder Status: Acute Assessment and Plan: -As seen on CT and RUQ US -Attempted HIDA but patient was uncooperative -Added flagyl to cover, continue to watch ltfs -No abdominal tenderness, no leukocytosis, no fever (9) Hypertension: Code(s): I10 - Essential (primary) hypertension Status: Acute Assessment and Plan: -BP has been trending high in the 160s and 170s systolic -Do not see hx of HTN in her records -She is still receiving IVF as she is not eating at this time -Will start low dose of amlodipine and monitor closely Additional Plan Subjective Date/time seen: 12/18/21 14:06 Interval history: 80-year-old female with past medical history of paroxysmal Aflutter, hypothyroidism, dementia (baseline orien
[2021-07-06 14:39] LABS: Anion Gap 7 mmol/L (8-16); Carbon Dioxide 28 mmol/L (22-30); Chloride 99 mmol/L (98-107); Estimated CRCL calculation 57 ml/min; Estimated Glomerular Filt Rate > 60; Glucose 102 mg/dL (65-110); Potassium 3.8 mmol/L (3.4-5.0); Sodium 134 mmol/L (137-145)
[2021-07-06 15:07] LABS: Blood Urea Nitrogen < 2 mg/dL (7-17)
[2021-07-06] MEDS: KCL 20 MEQ/D5/0.9% SOD CHL 1,000 ML 100 ML IV CONT (16:37)
[2021-07-06] MEDS: DONEPEZIL HCL 10 MG TABLET BY MOUTH (21:25)
[2021-07-07] VITALS (9 sets, daily range): BP systolic 128–156; BP diastolic 64–92; PULSE 58–73; RESP 12–16; TEMP 36.2–36.8; O2SAT 96–99
[2021-07-07] MEDS: KCL 20 MEQ/D5/0.9% SOD CHL 1,000 ML 100 ML IV CONT ×2 (04:19→15:39)
[2021-07-07 07:03] LABS: Basophils Percent Auto 0.4 % (0.2-1.2); Eosinophils Absolute Auto 0.3 K/mm3 (0-0.3); Eosinophils Percent Auto 4.2 % (0-4.4); Hematocrit 42.9 % (37.0-47.0); Hemoglobin 14.5 g/dL (12.0-15.0); Immature Granulocyte Absolute 0.09 K/mm3 (0.00-0.031); Immature Granulocyte Percent A 1.3 % (0-0.5); Lymphocytes Absolute Auto 1.11 K/mm3 (0.9-3.2); Lymphocytes Percent Auto 15.7 % (18.3-44.2); Mean Corpuscular HGB Conc 33.8 g/dl (32-36); Mean Corpuscular Hemoglobin 31.9 pg (26-34); Mean Corpuscular Volume 94.5 fl (80-100); Mean Platelet Volume 12.1 fl (7.4-10.4); Monocytes Absolute Auto 0.8 K/mm3 (0.1-0.6); Monocytes Percent Auto 10.6 % (2.6-8.5); Neutrophils Absolute Auto 4.8 K/mm3 (1.3-6.7); Neutrophils Percent Auto 67.8 % (45.5-73.1); Platelet Count Result 177 k/mm3 (150-375); Red Blood Count 4.54 M/mm3 (4.2-5.4); Red Cell Distribution Width 13.2 % (11.5-14.5); White Blood Count 7.1 K/mm3 (4.5-10.0)
[2021-07-07 07:09] LABS: Alanine Aminotransferase 16 U/L (4-35); Albumin Level 3.1 g/dL (3.5-5.1); Alkaline Phosphatase 59 U/L (38-126); Anion Gap 4 mmol/L (8-16); Aspartate Amino Transferase 44 U/L (14-36); Bilirubin,Total 0.5 mg/dL (0.2-1.3); Calcium 7.9 mg/dL (8.4-10.2); Carbon Dioxide 29 mmol/L (22-30); Chloride 102 mmol/L (98-107); Estimated CRCL calculation 67 ml/min; Estimated Glomerular Filt Rate > 60; Glucose 128 mg/dL (65-110); Magnesium 1.3 mg/dL (1.6-2.3); Potassium 3.3 mmol/L (3.4-5.0); Sodium 135 mmol/L (137-145)
[2021-07-07] MEDS: metroNIDAZOLE 500 MG/ISO 100ML 500 MG/100 ML BAG 100 MG IVPB ×2 (08:14→21:22)
[2021-07-07] MEDS: PANTOPRAZOLE SODIUM IV 40 MG VIAL IV PUSH ×2 (08:14→21:24)
[2021-07-07] MEDS: POTASSIUM CHLORIDE 20 MEQ TABLET.ER 40 MEQ PO (08:23)
[2021-07-07] MEDS: ASPIRIN 81 MG CHEWABLE TABLET BY MOUTH (08:24)
[2021-07-07] MEDS: levETIRAcetam 500 MG TABLET PO ×2 (08:24→21:21)
[2021-07-07] MEDS: amLODIPine BESYLATE 2.5 MG TABLET PO (08:25)
[2021-07-07] MEDS: FLUDROCORTISONE ACETATE 0.1 MG TABLET PO (08:25)
[2021-07-07 08:28] LABS: Blood Urea Nitrogen < 2 mg/dL (7-17)
--- NOTE | 2021-07-07 08:46 | PC.NURSE ---
I was informed by the night nurse that she was able to pass pt's PO meds by crushing them and putting them in pudding. I attempted to do the same; however, pt was extremely combative, refused to eat/drink anything, and kept trying to hit me with her cast. Pt informed me that I was crazy as hell and should be arrested. I calmly and in a soothing tone of voice tried to explain to pt that she wanted to eat the two bites of pudding because it would help her heart work better but pt still refused and grabbed my wrist and twisted and squeezed in an effort to hurt me.
--- NOTE | 2021-07-07 08:49 | PC.NURSE ---
I received a call from the KETTLE FRY COOK OPERATOR asking for assistance with pt who had urinated through the depends soaking herself and all the bed linens. Pt had also slid down in the bed and needed to be boosted. As we were boosting her so that we could then clean and change her, pt began screaming and making threats. The KETTLE FRY COOK OPERATOR left the room to get the clean linens and I called the vicky/JESSICA to inform her of pt's agitation. The vicky stated she would come up and try to calm pt.
--- NOTE | 2021-07-07 11:32 | PM.IMPN ---
Progress Note: A&P Assessment and Plan (1) Failure to thrive: Status: Acute Assessment and Plan: -Possible progression of her dementia causing her to have failure to thrive -Attempted regular diet, with supplementation, however patient has only been eating 0-15% of her meals so she was placed back on IVF. -Nursing staff is having a lot of difficulty getting her to take any of her PO medications -Continue attempting physical and occupational therapy -B12 normal, TSH normal. Pending folic acid, B12 >1000 -Did find pneumonia on CT so she was started on abx for this, could be contributing -Also found enlarged lymph node on CT consistent w/ recurrence of metastatic disease, Dr. Massey was consulted -RUQ US w/ abnormal gallbladder wall thickening, attempted HIDA but patient would not cooperate. Added flagyl to cover and will monitor. See below. -Spoke w/ POA today regarding hospice consult. She was agreeable to a consult. (2) Pneumonia: Code(s): J18.9 - Pneumonia, unspecified organism Status: Acute Assessment and Plan: -CT abd/pelv w/ RLL pneumonia, pt was started on IV azithromycin and rocephin -no fevers or leukocytosis, 95% on RA, no cough noted (3) Dehydration: Code(s): E86.0 - Dehydration Status: Acute Assessment and Plan: -Continue IV fluids -Garment Inspector continues to follow however patient has had very poor PO intake x 6 days now (4) Acute hypokalemia: Code(s): E87.6 - Hypokalemia Status: Acute Assessment and Plan: -secondary to decreased PO intake -Potassium monitored and replaced -continue to monitor BMP (5) Hx of tongue cancer: Code(s): Z85.810 - Personal history of malignant neoplasm of tongue Status: Acute Assessment and Plan: -Her niece is concerned for recurrence of her tongue cancer, states it seems like it hurts her to eat -CT soft tissue of head and neck shows enlarged L mid internal jugular lymph node consistent with metastatic disease -She previously saw an ENT specialist (but no oncologist) per niece who is providing history, this physician however was in [place] and they would like the transfer care to someone local -Dr. Massey was consulted and evaluated patient. He has ordered a biopsy which was completed here and patient is going to follow up with him on outpatient basis. -recurrent cancer the cause of failure to thrive? Discussed hospice consult with POA. (6) Seizure: Code(s): R56.9 - Unspecified convulsions Status: Acute Assessment and Plan: -Continue home seizure meds. Will continue her PO Keppra at this time. -Seizure precautions in place (7) Paroxysmal atrial flutter: Onset Date: ~04/2019 Code(s): I48.92 - Unspecified atrial flutter Status: Acute Assessment and Plan: -Currently in normal sinus rhythm. (8) Thickening of wall of gallbladder: Code(s): K82.8 - Other specified diseases of gallbladder Status: Acute Assessment and Plan: -As seen on CT and RUQ US -Attempted HIDA but patient was uncooperative -Added flagyl to cover, continue to watch ltfs -No abdominal tenderness, no leukocytosis, no fever (9) Hypertension: Code(s): I10 - Essential (primary) hypertension Status: Acute Assessment and Plan: -BP has been trending high in the 160s and 170s systolic -Do not see hx of HTN in her records -She is still receiving IVF as she is not eating at this time -Will start low dose of amlodipine and monitor closely Additional Plan hospice consult placed. will need to decide between PEG and hospice, consider TPN Subjectiv
[2021-07-07 12:53] LABS: Anion Gap 7 mmol/L (8-16); Calcium 7.8 mg/dL (8.4-10.2); Carbon Dioxide 27 mmol/L (22-30); Chloride 102 mmol/L (98-107); Estimated CRCL calculation 67 ml/min; Estimated Glomerular Filt Rate > 60; Glucose 141 mg/dL (65-110); Potassium 3.5 mmol/L (3.4-5.0); Sodium 136 mmol/L (137-145)
[2021-07-07 13:26] LABS: Blood Urea Nitrogen < 2 mg/dL (7-17)
--- NOTE | 2021-07-07 13:48 | PCSTNOTE ---
Please refer to the Bedside Swallow Evaluation in the EMR. Please note, silent aspiration cannot be ruled out at bedside.
[2021-07-07] MEDS: DONEPEZIL HCL 10 MG TABLET BY MOUTH (21:23)
[2021-07-08] VITALS (9 sets, daily range): BP systolic 145–147; BP diastolic 74–89; PULSE 63–107; RESP 17–20; TEMP 35.7–36.6; O2SAT 95–98
[2021-07-08] MEDS: KCL 20 MEQ/D5/0.9% SOD CHL 1,000 ML 100 ML IV CONT (03:02)
[2021-07-08] MEDS: metroNIDAZOLE 500 MG/ISO 100ML 500 MG/100 ML BAG 100 MG IVPB ×3 (04:25→20:49)
[2021-07-08 05:21] LABS: Basophils Percent Auto 0.4 % (0.2-1.2); Eosinophils Absolute Auto 0.3 K/mm3 (0-0.3); Eosinophils Percent Auto 3.2 % (0-4.4); Hematocrit 44.5 % (37.0-47.0); Hemoglobin 14.4 g/dL (12.0-15.0); Immature Granulocyte Absolute 0.13 K/mm3 (0.00-0.031); Immature Granulocyte Percent A 1.2 % (0-0.5); Lymphocytes Absolute Auto 1.34 K/mm3 (0.9-3.2); Lymphocytes Percent Auto 12.6 % (18.3-44.2); Mean Corpuscular HGB Conc 32.4 g/dl (32-36); Mean Corpuscular Hemoglobin 32.4 pg (26-34); Mean Platelet Volume 12.1 fl (7.4-10.4); Monocytes Absolute Auto 0.9 K/mm3 (0.1-0.6); Neutrophils Absolute Auto 7.9 K/mm3 (1.3-6.7); Neutrophils Percent Auto 74.6 % (45.5-73.1); Platelet Count Result 169 k/mm3 (150-375); Red Blood Count 4.45 M/mm3 (4.2-5.4); Red Cell Distribution Width 13.5 % (11.5-14.5); White Blood Count 10.6 K/mm3 (4.5-10.0)
[2021-07-08 05:37] LABS: Anion Gap 7 mmol/L (8-16); Calcium 7.4 mg/dL (8.4-10.2); Carbon Dioxide 22 mmol/L (22-30); Chloride 108 mmol/L (98-107); Estimated CRCL calculation 67 ml/min; Estimated Glomerular Filt Rate > 60; Glucose 119 mg/dL (65-110); Potassium 3.4 mmol/L (3.4-5.0); Sodium 137 mmol/L (137-145)
[2021-07-08 05:39] LABS: Blood Urea Nitrogen < 2 mg/dL (7-17)
[2021-07-08] MEDS: POTASSIUM CHLORIDE 20 MEQ TABLET.ER 40 MEQ PO ×2 (09:45→17:34)
[2021-07-08] MEDS: FLUDROCORTISONE ACETATE 0.1 MG TABLET PO (09:45)
[2021-07-08] MEDS: PANTOPRAZOLE SODIUM IV 40 MG VIAL IV PUSH ×2 (09:45→20:49)
[2021-07-08] MEDS: amLODIPine BESYLATE 5 MG TABLET PO (09:45)
[2021-07-08] MEDS: levETIRAcetam 500 MG TABLET PO ×2 (09:46→20:43)
[2021-07-08] MEDS: ASPIRIN 81 MG CHEWABLE TABLET BY MOUTH (09:46)
[2021-07-08] MEDS: CYANOCOBALAMIN 1,000 MCG TABLET 1000 MCG PO (09:46)
--- NOTE | 2021-07-08 10:24 | PM.IMPN ---
Progress Note: A&P Assessment and Plan (1) Failure to thrive: Status: Acute Assessment and Plan: -Possible progression of her dementia causing her to have failure to thrive -B12 normal, TSH normal. Pending folic acid, B12 >1000 -Did find possible pneumonia on admission however she was treated with full course of IV abx -RUQ US w/ abnormal gallbladder wall thickening, attempted HIDA but patient would not cooperate. Added flagyl to cover and will monitor. See below. -Also found enlarged lymph node on CT consistent w/ recurrence of metastatic disease, Dr. Massey was consulted. It was confirmed today that the biopsy taken is in fact metastatic squamous cell carcinoma. -Attempted regular diet, with supplementation, however patient has only been eating 0-15% of her meals -Spoke w/ supervisor smoke control today. IVF discontinued and she was transitioned to PPN while we get a plan together for next steps -Nursing staff is having a lot of difficulty getting her to take any of her PO medications -Spoke w/ POA today regarding hospice. She met with them last night. I spoke w/ her today about the positive biopsy result. She would like to talk to Dr. Massey regarding treatment options for the metastatic disease prior to making a hospice decision. I also discussed with her the need to get a GI consult for a PEG tube moving forward if she decides against hospice. (2) Acute hypokalemia: Code(s): E87.6 - Hypokalemia Status: Acute Assessment and Plan: -secondary to decreased PO intake -Potassium monitored and replaced -continue to monitor BMP (3) Metastatic squamous cell carcinoma: Code(s): C79.9 - Secondary malignant neoplasm of unspecified site Status: Acute Assessment and Plan: -biopsy results confirm metastatic squamous cell carcinoma -see above (4) Pneumonia: Code(s): J18.9 - Pneumonia, unspecified organism Status: Acute Assessment and Plan: -CT abd/pelv w/ RLL pneumonia -pt completed round of IV azithromycin and rocephin -no fevers or leukocytosis, 95% on RA, no cough noted (5) Thickening of wall of gallbladder: Code(s): K82.8 - Other specified diseases of gallbladder Status: Acute Assessment and Plan: -As seen on CT and RUQ US -Attempted HIDA but patient was uncooperative -Added flagyl to cover, continue to watch ltfs -No abdominal tenderness, no leukocytosis, no fever (6) Hx of tongue cancer: Code(s): Z85.810 - Personal history of malignant neoplasm of tongue Status: Acute Assessment and Plan: -Her niece is concerned for recurrence of her tongue cancer, states it seems like it hurts her to eat -CT soft tissue of head and neck shows enlarged L mid internal jugular lymph node consistent with metastatic disease -She previously saw an ENT specialist (but no oncologist) per niece who is providing history, this physician however was in [place] and they would like the transfer care to someone local -Dr. Massey was consulted and evaluated patient. -Biopsy was ordered and confirmed to be metastatic squamous cell carcinoma. -please see above for plan (7) Hypertension: Code(s): I10 - Essential (primary) hypertension Status: Acute Assessment and Plan: -BP had been trending high in the 160s and 170s systolic -Do not see hx of HTN in her records -Started low dose of amlodipine with improvement -Continue monitoring (8) Seizure: Code(s): R56.9 - Unspecified convulsions Status: Acute Assessment and Plan: -Continue home seizure meds. Will continue her PO Keppra at this time. -Seizure precautions in place (9) Paroxysmal atrial flutter: Onset Date: ~04/2019 Code(s):
[2021-07-08 11:02] LABS: Basophils Percent Auto 0.3 % (0.2-1.2); Eosinophils Absolute Auto 0.4 K/mm3 (0-0.3); Eosinophils Percent Auto 3.1 % (0-4.4); Hematocrit 43.1 % (37.0-47.0); Hemoglobin 14.3 g/dL (12.0-15.0); Immature Granulocyte Absolute 0.11 K/mm3 (0.00-0.031); Immature Granulocyte Percent A 0.9 % (0-0.5); Lymphocytes Absolute Auto 1.23 K/mm3 (0.9-3.2); Lymphocytes Percent Auto 10.2 % (18.3-44.2); Mean Corpuscular HGB Conc 33.2 g/dl (32-36); Mean Corpuscular Hemoglobin 32.4 pg (26-34); Mean Corpuscular Volume 97.5 fl (80-100); Mean Platelet Volume 11.9 fl (7.4-10.4); Monocytes Absolute Auto 0.7 K/mm3 (0.1-0.6); Neutrophils Absolute Auto 9.6 K/mm3 (1.3-6.7); Neutrophils Percent Auto 79.5 % (45.5-73.1); Platelet Count Result 180 k/mm3 (150-375); Red Blood Count 4.42 M/mm3 (4.2-5.4); Red Cell Distribution Width 13.5 % (11.5-14.5); White Blood Count 12.1 K/mm3 (4.5-10.0)
[2021-07-08 11:03] LABS: Partial Thromboplastin Time 34.9 SECONDS (22.3-36.8)
[2021-07-08 11:17] LABS: Alanine Aminotransferase 22 U/L (4-35); Albumin Level 2.9 g/dL (3.5-5.1); Alkaline Phosphatase 59 U/L (38-126); Anion Gap 6 mmol/L (8-16); Aspartate Amino Transferase 73 U/L (14-36); Bilirubin,Total 0.5 mg/dL (0.2-1.3); Calcium 7.8 mg/dL (8.4-10.2); Carbon Dioxide 26 mmol/L (22-30); Chloride 105 mmol/L (98-107); Estimated CRCL calculation 57 ml/min; Estimated Glomerular Filt Rate > 60; Glucose 155 mg/dL (65-110); Magnesium 1.3 mg/dL (1.6-2.3); Potassium 3.9 mmol/L (3.4-5.0); Sodium 137 mmol/L (137-145)
--- NOTE | 2021-07-08 12:08 | PCNFU ---
Nutrition Follow-Up Complete: Inadequate Oral Intake as related to dementia as evidenced by poor po intake reported Goal: Meet estimated nutritional needs Patient has limited progress on goal. We will continue current goal. Pt current nutrition is Regular with Ensure compact BID. Last recorded weight is 60.7 kg, no new weight to report. Recommend: new weight. Bowel Motility:+BM reported 07/08 Labs Reviewed:BUN < 2 , Cr 0.5 Meds Noted: Clinimix 4.25/5 at 80 ml/hr with 250 ml of 20% Lipid Emulsion, Keppra, Protonix, Zithromax, B12, KCL tablet, Norvasc. Skin: WNL Additional Notes: Patient continues with minimal intake since admit. Spoke with TORRES Dill today regarding nutritional status. PPN starting today providing an additional 1153 kcals and 82 gms protein. Hospice did meet with family, awaiting for plan of care. Monitoring: Will monitor every Thursday and Thursday.
[2021-07-08] MEDS: AMINO ACIDS 4.25%/D5W/LYTES/CA 2,000 ML 80 ML IV CONT (12:49)
--- NOTE | 2021-07-08 13:24 | WPDGICN ---
Assessment and Plan Assessment and plan (1) Metastatic squamous cell carcinoma: Code(s): C79.9 - Secondary malignant neoplasm of unspecified site Status: Acute Assessment and Plan: she now has metastatic disease. has been consulted and will be seen her. The family will be making a decision about further care. (2) Failure to thrive: Status: Acute Assessment and Plan: I agree the percutaneous gastrostomy placement would be indicated. I will check back in the morning to see if any decision has been made. (3) Encephalopathy: Code(s): G93.40 - Encephalopathy, unspecified Status: Acute Assessment and Plan: She clearly has dementia. She believes for insists that her mother is still practicing nurse. She also states that she thinks that she is eating well. GI Consult Note Consult date/time: 07/08/21 13:24 HPI: Rakel Jeronimo is a 81 year old female When asked to see because of poor nutrition. She is taking very little for meals. She also is having a difficult time taking oral medications. She has been started on parenteral amino acids as a supplement. She has dementia and therefore her history is not reliable. For example she told me that her mother is still a practicing nurse. She denies difficulty swallowing she denies anorexia nausea vomiting or any abdominal pain. She was found to have enlarged lymph nodes common biopsies reveal metastatic squamous cell carcinoma. The primary has not been clarified, but she does have a history of squamous cell carcinoma of the tongue. I understand that there is going to be consideration of possible hospice. If that is declined, that she would definitely be a candidate for percutaneous gastrostomy. Will tentatively plan on doing that tomorrow if that is the direction that everybody agrees to Review of Systems Review of Systems: All systems reviewed & are unremarkable except as noted in HPI and below PMFSH Past Medical History Medical History B12 deficiency Chronic kidney disease, stage 3 Diastolic dysfunction noted on echocardiogram 12/2016: Grade 1 diastolic dysfunction increased left heart filling pressures, EF 65% mild pulmonary valve regurgitation Fall Hx of tongue cancer Hypokalemia Hypomagnesemia Hypothyroidism Impaired glucose tolerance Iron deficiency Macular degeneration Obstructive lung disease mild on PFTs 05/2006 Paroxysmal atrial flutter (~04/2019) Squamous cell cancer of tongue (~2008) Surgical History Surgical History History of colonoscopy with polypectomy (~2008) History of cystoscopy with bladder polypectomy History of dilation and curettage (~03/2019) Family History Family History Father Oral cancer Sibling Colorectal cancer sister Social History Social History Social History: She lives at [facility]. She is a lifelong nonsmoker. She used to drink alcohol on occasion and only in moderation but has not drank alcohol in many years. 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 She has never been and does not have any children. Surrogate decision maker: Jo (niece) Code status: DNR Smoking status: Never smoker Second hand tobacco smoke exposure: No Alcohol intake: never Substance use: never Substance use type: does not use Gender identity (if verbalized by the patient): Female Sexual Orientation (if Verbalized by the Patient): Straight or Heterosexual Spiritual care concerns: No Meds Home Medications and Allergies Home Medications Medication Instructions Recorded Confirmed Type mecobalamin (vitamin B12) 1,000 1,000 mcg SUBLINGUAL DAILY 05/26/19 06/30/21 History mcg disintegrating tablet
[2021-07-08 13:35] LABS: Glucose Point of Care 102 mg/dl (65-105)
[2021-07-08 16:24] LABS: Blood Urea Nitrogen < 2 mg/dL (7-17); Transferrin < 80 mg/dL (206-381)
[2021-07-08] MEDS: CITALOPRAM HYDROBROMIDE 5 MG TABLET BY MOUTH (17:34)
[2021-07-08] MEDS: FAT EMULSIONS IV 20% 250 ML 20.83 ML IVPB (17:34)
[2021-07-08 19:22] LABS: Glucose Point of Care 111 mg/dl (65-105)
[2021-07-08] MEDS: DONEPEZIL HCL 10 MG TABLET BY MOUTH (20:43)
[2021-07-08 23:36] LABS: Glucose Point of Care 116 mg/dl (65-105)
[2021-07-09] VITALS: PULSE 75
[2021-07-09 04:00] VITALS: PULSE 82
[2021-07-09 05:41] LABS: Anion Gap 6 mmol/L (8-16); Blood Urea Nitrogen 7 mg/dL (7-17); Calcium 7.9 mg/dL (8.4-10.2); Carbon Dioxide 26 mmol/L (22-30); Chloride 102 mmol/L (98-107); Estimated CRCL calculation 57 ml/min; Estimated Glomerular Filt Rate > 60; Glucose 120 mg/dL (65-110); Phosphorus 2.7 mg/dL (2.5-4.5); Potassium 4.2 mmol/L (3.4-5.0); Sodium 134 mmol/L (137-145)
[2021-07-09] MEDS: metroNIDAZOLE 500 MG/ISO 100ML 500 MG/100 ML BAG 100 MG IVPB (05:53)
[2021-07-09 06:14] VITALS: BP 148/85; PULSE 78; RESP 18; TEMP 36.1; O2SAT 97
[2021-07-09 06:28] LABS: Glucose Point of Care 115 mg/dl (65-105)
[2021-07-09 06:31] LABS: Triglycerides 203 mg/dL (<150)
[2021-07-09 08:00] VITALS: PULSE 91
[2021-07-09 08:49] LABS: Magnesium 1.3 mg/dL (1.6-2.3)
[2021-07-09] MEDS: PANTOPRAZOLE SODIUM IV 40 MG VIAL IV PUSH (09:43)
[2021-07-09] MEDS: levETIRAcetam 500 MG TABLET PO (09:43)
[2021-07-09] MEDS: POTASSIUM CHLORIDE 20 MEQ TABLET.ER 40 MEQ PO (09:43)
[2021-07-09] MEDS: amLODIPine BESYLATE 5 MG TABLET PO (09:43)
[2021-07-09] MEDS: CYANOCOBALAMIN 1,000 MCG TABLET 1000 MCG PO (09:43)
[2021-07-09] MEDS: FLUDROCORTISONE ACETATE 0.1 MG TABLET PO (09:43)
--- NOTE | 2021-07-09 10:54 | PCNFU ---
Nutrition Follow-Up Complete: Inadequate Oral Intake as related to dementia as evidenced by poor po intake reported Goal: Meet estimated nutritional needs Patient has limited progress towards goal. We will continue current goal. Pt current nutrition is Regular with ensure compact BID. Last recorded weight is 60.7 kg, no new weight to report. Recommend: new weight. Bowel Motility:+BM reported 07/08 Labs Reviewed:Cr 0.6,TG 203, Na 134 Meds Noted:Clinimix 4.25/5 at 80 ml/hr, 250 ml of 20% Lipid Emulsion, Keppra, B12, KCL Tablet, Protonix, Flagyl. Skin: WNL Additional Notes: Patient continues to have poor po intake. PPN started 07/08 providing an additional 1153 kcals/82 gms protein. PPN is currently paused due to peripheral IV's infiltrated. Plans for PPN to remained paused till MD see's patient and speaks with family in regards to plan of care. We will continue current diet order with supplements. Monitoring: Will monitor every Thursday and Thursday.
[2021-07-09 12:01] VITALS: PULSE 106
[2021-07-09 12:40] LABS: Glucose Point of Care 94 mg/dl (65-105)
--- NOTE | 2021-07-09 15:18 | PM.DS ---
DS: Admitting Diagnosis Discharge Date 07/09/21 Admitting Diagnosis Refusing to eat and drink DS: Discharge Diagnosis Discharge Diagnosis (1) Failure to thrive: Status: Acute Assessment and Plan: 80-year-old female with past medical history of paroxysmal Aflutter, hypothyroidism, dementia (baseline orientation x 1-2), orthostatic hypotension, B12 deficiency, diastolic dysfunction, who presented to the ER from [facility] due to failure to thrive. Per EMS report the patient had not been taking her medications the last 3 days, increased generalized weakness, refusing to eat or drink and per her niece she is at her baseline mental status and acting her normal self. Initial vitals showed stable vitals with blood pressure 134/76, heart rate 98 beats per minute, afebrile, 97% on room air. Initial labs showed leukocytosis at 12,600, with elevated neutrophils at 80%, hemoconcentration with a hemoglobin of 15.8, hematocrit 46.9. Thrombocytopenia at 143,000. Hypokalemia at 3.1, magnesium low at 1.6 which will be replaced, mildly elevated creatinine at 1.1, when baseline is 0.8. 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 Initial troponin normal. Urinalysis is not suspicious for UTI with many squamous cells, wbc's 31-50, 2+ protein, 1+ blood, 1+ bilirubin, 4+ urobilinogen, RBC 6-10. Chest x-ray shows no acute cardiopulmonary abnormality. Further imaging completed due to bruising on her hip and knees which showed osteoarthritis without acute osseous abnormality. CT head showed no acute intracranial abnormality, age-related findings. EKG showed normal sinus rhythm, rate of 76 beats per minute, incomplete right bundle branch, otherwise no acute ST T-wave changes. She will be admitted into the hospital under observation status, with IV fluid hydration, replenish electrolytes, will continue IV Rocephin until urine culture results returned with further monitoring of her mental status. During the patient's admission she continued to have issues with not eating or drinking and intermittently refusing to take her medications. I believe this is all due to an advancement of her dementia. The patient's niece had mentioned her history of tongue cancer in worried that this has reoccurred causing her to not eat or drink. A CT neck soft tissue was ordered showing Mildly enlarged left mid internal jugular chain lymph node, worsened from 02/18/2021, consistent with metastatic disease. Oncology was consulted and ordered a biopsy of her lymph node which did show squamous cell carcinoma which she had had before. The CT Scan also showed Airspace opacities in right lung lower lobe, consistent with pneumonia. She was started on IV Rocephin 07/01/21 and discontinued 07/07/21 and azithromycin 07/02/2021 and discontinued 07/08/2021 which is 7 days of IV antibiotics. She was also started on IV Flagyl 07/03/21 until 07/09/21 for abnormal gallbladder thickening which was shown on RUQ US. HIDA scan was attempted but patient was not compliant with this test in so was clinically treated with antibiotics Due to the patient not eating or drinking she was started on TPN 07/08/21. Previous provider had consulted GI for possible PEG tube placement I spoke with the patient's niece today about the patient's clinical status, outlook with progression of dementia, outlook with possible recurrence of her cancer, treatment options and my thoughts that given her clinical status that she should be placed on hospice care. The patient's niece has done a lot of research, talked to multiple people, made phone calls to local facilities and has spoken with hospice over the last few days. Patient's niece evaluated the patient today and given our conversation and has decided to discharge the patient to [place] on hospice care. Currently at this time the patient is stable. I will continue her home medications as such. Will continue with eating
[2021-07-09 15:33] LABS: EDCOVIDSCREEN Negative (Negative)
== END 2021-07-09 16:40 | disposition hospice, inpatient (51) | DRG 194 ==
LOC: ANHED 13:40 → ANH2MED 15:50
PROVIDERS: Physician Assistant; Admitting Provider Family Medicine; Emergency Provider Nurse Practitioner; Visit Provider Physician Assistant
DX: J18.9 Pneumonia, unspecified organism (principal); C77.0 Secondary and unspecified malignant neoplasm of lymph nodes of head, face and neck; I48.92 Unspecified atrial flutter; R62.7 Adult failure to thrive; Z85.810 Personal history of malignant neoplasm of tongue; I11.9 Hypertensive heart disease without heart failure; E86.0 Dehydration; Z20.822 Contact with and (suspected) exposure to COVID-19; E87.6 Hypokalemia; R56.9 Unspecified convulsions; K82.8 Other specified diseases of gallbladder; N18.30 Chronic kidney disease, stage 3 unspecified; H35.30 Unspecified macular degeneration; E03.9 Hypothyroidism, unspecified; F03.90 Unspecified dementia, unspecified severity, without behavioral disturbance, psychotic disturbance, mood disturbance, and anxiety; E53.8 Deficiency of other specified B group vitamins; Z66 Do not resuscitate; Z79.82 Long term (current) use of aspirin; Z79.899 Other long term (current) drug therapy; Z91.81 History of falling
CPT/HCPCS: 36415; 38505; 51701; 70450; 70490; 71045; 73521; 73562; 74177; 76705; 76942; 80048; 80053; 81001; 82607; 82746; 82948; 83690; 83735; 84100; 84132; 84443; 84466; 84478; 84484; 85025; 85055; 85730; 87086; 87426; 88305; 88342; 92610; 93005; 96361; 96365; 96366; 96367; 96372; 96375; 97162; 97165; 97530; 97535; 99285; A9270; C9113; C9803; G0378; J0456; J0696; J1650; J1953; J3475; J3480; J7030; J7120; Q9967